=== PATIENT | female | born 2000 | race Caucasian/White ===

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

== ENCOUNTER 2022-11-19 03:00 | Outpatient (CLI) | payer MEDICAID, SELFPAY ==
[2013-05-25 10:13] VITALS: O2SAT 97
[2022-11-19 15:24] LABS: Abs Immature Grans 0.05 10^3/uL (0.0-0.06); Absolute Basophil Count 0.07 10^3/uL (0.0-0.2); Absolute Eosinophil Count 0.15 10^3/uL (0.0-0.7); Absolute Lymphocyte Count 3.61 10^3/uL (1.2-3.4); Absolute Monocyte Count 0.71 10^3/uL (0.1-0.8); Absolute Neutrophil Count 6.14 10^3/uL (1.2-6.7); Basophils % 0.7; Eosinophils % 1.4; Immature Grans % 0.5; Lymphocytes % 33.6; MCH 29.7 pg (27.0-33.0); MCHC 33.3 % (32.0-36.0); MCV 89 fL (80-95); MPV 11.6 fL (8.0-11.0); Monocytes % 6.6; Neutrophils % 57.2; Platelet Count 338 10^3/uL (130-400); RBC 5.39 10^6/uL (3.93-5.22); RDW-SD 39.2 fL; WBC 10.73 10^3/uL (4.4-10.8)
[2022-11-19 15:39] LABS: ALT 35 U/L (14-59); AST 17 U/L (15-37); Albumin 4.1 g/dL (3.4-5.0); Alkaline Phosphatase 108 U/L (46-116); BUN 11 mg/dL (7-18); Bilirubin, Total 0.3 mg/dL (0.2-1.0); CREATININE 0.6 mg/dL (0.55-1.02); Calcium 9.3 mg/dL (8.5-10.1); Calculated LDL 77 mg/dL (<100); Chloride 104 mmol/L (98-107); Cholesterol 168 mg/dL (<200); Estimated GFR 132.52 (mL/min/1.73m2); Glucose 114 mg/dL (74-106); HDL Cholesterol 48 mg/dL (40-60); Sodium 143 mmol/L (136-145); Total Protein 7.7 g/dL (6.4-8.2); Triglyceride 217 mg/dL (<150)
[2022-11-19 15:56] LABS: Hemoglobin A1C 5.5 % (<5.7)
== END 2022-11-19 03:01 | disposition home or self-care (01) ==
PROVIDERS: PCP Pediatrics; Visit Provider Student in an Organized Health Care Education/Training Program
DX: I10 Essential (primary) hypertension (principal)
CPT/HCPCS: 36415; 80053; 80061; 83036; 85025

== ENCOUNTER 2023-01-28 00:47 | Outpatient (CLI) | payer MEDICAID, SELFPAY ==
[2013-05-25 10:13] VITALS: O2SAT 97
--- NOTE | 2023-01-28 07:30 | DI.MRI_ITS ---
Exam(s) MR BRAIN WO EXAM: MR BRAIN WO CLINICAL HISTORY: ? IIH,? lesion, ? chiari malformation,papilledema, h47.10 TECHNIQUE: Multiplanar multisequence MRI of the brain was performed. COMPARISON: CT CT HEAD WO from 01/19/2021 FINDINGS: VENTRICLES AND EXTRA AXIAL SPACES: Normal in size and morphology for the patient's age. MIDLINE SHIFT: None. CEREBRAL PARENCHYMA: No focus of restricted diffusion to suggest acute infarct. No space-occupying le chester identified. HEMORRHAGE: None. BRAINSTEM/CEREBELLUM: Normal. CALVARIUM: Normal. VISUALIZED PARANASAL SINUSES/MASTOIDS:Clear. NISQUALLY OF BARRAZA: Normal flow void. PITUITARY GLAND: Note is made of a partially empty sella. OTHER FINDINGS: There is no evidence of a Chiari malformation. IMPRESSION: 1. No acute intracranial process. 2. Partially empty sella. 3. No evidence of a Chiari malformation. DATA REPOSITORY:
== END 2023-01-28 01:07 ==
LOC: DI 00:47
PROVIDERS: PCP Pediatrics; Visit Provider Nurse Practitioner Adult Health
DX: H47.10 Unspecified papilledema (principal)
CPT/HCPCS: 70551

== ENCOUNTER 2023-11-19 13:17 | Emergency (ER) | payer MEDICAID, SELFPAY ==
[2013-05-25 10:13] VITALS: O2SAT 97
[2023-11-19 13:20] VITALS: BP 197/125; PULSE 108; RESP 20; TEMP 37.1; O2SAT 98
--- NOTE | 2023-11-19 13:26 | W.ED.GENAD ---
HPI General Date/Time Provider Initiated Documentation: 11/19/23 13:20. HPI Narrative: 22-year-old female with past medical history of hypertension, brain complications, who presents today for evaluation of bleeding from her right ear. Patient states that she had some muffling in her ear/hearing, she put a Q-tip in to get some suspected wax out and this shortly thereafter cause bleeding. She denies any pain. No discomfort. She did not have any significant change in hearing after this. No other complaints at this time. No other modifying factors. Related Data Home Medications Medication Instructions Recorded Confirmed albuterol sulfate 90 mcg/actuation 2 puff inhalation Q4H PRN 10/29/18 11/19/23 aerosol inhaler shortness of breath or wheezing prochlorperazine maleate 5 mg 5 mg PO TID PRN headaches #30 tabs 01/24/23 11/19/23 tablet Previous Rx's Medication Instructions Recorded prochlorperazine maleate 5 mg 5 mg PO TID PRN headaches #30 tabs 01/24/23 tablet Allergies Allergy/AdvReac Type Severity Reaction Status Date / Time bee venom protein (honey bee) Allergy Severe Unverified 11/19/23 13:27 sweet potato Allergy Severe Anaphylaxsi Verified 11/19/23 13:27 s bug bites Allergy Uncoded 11/19/23 13:27 General Stated Complaint: EarProblem COLTEN: 4 Review of Systems All systems reviewed & are unremarkable except as noted in HPI and below Exam Narrative Exam Narrative: 1.Const: Well-nourished, Well-developed, appearing stated age 2.Eyes: PERRL, no conjunctival injection, and symmetrical lids. 3.ENT: Left tympanic membrane and ear exam demonstrates mild amount of cerumen. No impaction. No evidence of infection. Right tympanic membrane demonstrates an intact TM, no erythema edema or effusion. She does have evidence of a small area of stabilized bleeding at the near the external component of the external ear canal. Small clot is present there. No active bleeding. No signs of infection or trauma otherwise. 4.CVS: +S1/S2, No murmurs or gallops. Peripheral pulses 2+ and equal in all extremities. Brisk capillary refill in all extremities. 5.RESP: Unlabored respiratory effort. Clear to auscultation bilaterally. No wheezes rales or rhonchi 6.GI: Soft, Nontender/Nondistended, No hepatosplenomegaly. No guarding or rebound. 7.MSK: Normocephalic/Atraumatic, Extremities w/o deformity or ttp No cyanosis or clubbing, Normal movement of all extremities 8.Skin: Warm, Dry. No rashes or lesions. 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 Sensation grossly intact, no focal neurologic deficits. 10.Psych: (AAO) x3. Appropriate mood and affect Course Vital Signs Vital signs: Vital Signs Temperature 37.1 C 11/19/23 13:20 Pulse 108 H 11/19/23 13:20 Respiratory Rate 20 11/19/23 13:20 Blood Pressure 197/125 H 11/19/23 13:20 Pulse Oximetry 98 11/19/23 13:20 Temperature 37.1 C 11/19/23 13:20 Temperature Source Skin 11/19/23 13:20 Pulse 108 H 11/19/23 13:20 Respiratory Rate 20 11/19/23 13:20 Respiratory Effort Normal 11/19/23 13:25 Blood Pressure 197/125 H 11/19/23 13:20 Blood Pressure Position Sitting 11/19/23 13:20 Pulse Oximetry 98 11/19/23 13:20 Oxygen Delivery Method Room Air 11/19/23 13:20 Oxygen Flow Rate 0 11/19/23 13:20 Medical Decision Making 22-year-old female with past medical history of hypertension, brain complications, who presents today for evaluation of bleeding from her right ear. Patient states that she had some muffling in her ear/hearing, she put a Q-tip in to get some suspected wax out and this shortly thereafter cause bleeding. She denies any pain. No discomfort. She did not have any significant change in hearing after this. No other complaints at this time. No other modifying factors. Exam demonstrates well-appearing female, left tympanic membrane normal, right tympanic membrane normal with no signs of perforation. There is a small area of bleeding in the external component of the external auditory canal, small clot is present there. Suspect that the patient removed either scab or cerumen which caused the bleeding subsequently. This is now stabilized. No large clot that needs washout. Patient looks well otherwise. No indication for infection control. Patient is otherwise stable. Small amount of gauze was placed at the edge of the ear, patient tolerated this well. Patient stable for discharge. Recommend 2 to 3 weeks of nothing in the ear, and then eventual washout with warm water at the urgent care or with PCP. Discussed red flags for which to return. I have extensively reviewed the treatment plan and discharge instructions with the patient. I have addressed all patient concerns at this time. The patient was made aware of what symptoms to monitor for that would warrant a return to the emergency department. Discussed the plan with the patient, they demonstrate verbal understanding and agreement with our assessment and plan at this time. The documentation in this chart was dictated using [employer] dictation software. Please excuse any dictation errors. Quality:SDOH Health Related Social Needs: No Data to Display PFSH All Active Problems Traumatic hematoma of right ear canal (Acute) Idiopathic intracranial hypertension (Acute) Hypertension (Chronic) Papilledema (Acute) Migraine headache (Chronic) Musculoskeletal chest pain (Acute) Medical History Headache Black-out (not amnesia) History of prematurity 2.5 months early per Mother Asthma Social History Smoking/Tobacco Use Status: Never Smoking risk assessment performed?: Yes Alcohol Intake: never Substance use type: does not use Household members: family Pets and animals: Yes Pets and animals: cat(s) Current gender identity: female Seatbelt use: always Helmet use: Yes Water heater temp set <120 deg: Yes Fire extinguisher in home: Yes Carbon monox detector in home: Yes Firearms in home: No Do you feel safe in your relationship?: Yes Additional Social history: Lives with Mom sister and Mom's fiance. No interaction with Bio Dad. Discharge Plan Disposition Patient Disposition: Home Condition: Good Discharge Details Chief Complaint: EarProblem Clinical Impression: Traumatic hematoma of right ear canal Primary Care Provider: Andrea Nye ED Provider: Andrea Perez Home Meds and New Rx's Prescriptions: No Action prochlorperazine maleate 5 mg tablet 5 mg PO TID PRN (Reason: headaches) Qty: 30 3RF acetazolamide 250 mg tablet 500 mg PO BID Qty: 360 3RF albuterol sulfate 90 mcg/actuation HFA aerosol inhaler 2 puff IH Q4H PRN (Reason: shortness of breath or wheezing) Discharge Instructions Additional Instructions: At this time the bleeding was likely from a scab that got pulled off. Please do not put anything in your ear for the next 2 to 3 weeks. The bleeding has now stopped at this time, and a small clot has appropriately formed. Please follow-up with your family doctor or the urgent care to have your ears washed out with water for eventual wax removal. If you notice any worsening of your symptoms, or any new symptoms such as vomiting, diarrhea, fever, chills, shortness of breath, chest pain, numbness, weakness, or fainting , please return immediately to the emergency department for reevaluation. Please follow up with your primary care provider as soon as possible for reassessment and reevaluation. As always, it was a pleasure participating in your medical care today. Referrals: Andrea Nye MD [Primary Care Provider] -
== END 2023-11-19 13:32 | disposition home or self-care (01) ==
PROVIDERS: Emergency Provider Student in an Organized Health Care Education/Training Program; PCP Pediatrics
DX: S00.431A Contusion of right ear, initial encounter (principal); Y93.E8 Activity, other personal hygiene; Y92.018 Other place in single-family (private) house as the place of occurrence of the external cause
CPT/HCPCS: 99282

== ENCOUNTER 2023-12-08 09:22 | Emergency (ER) | payer MEDICAID, SELFPAY ==
[2013-05-25 10:13] VITALS: O2SAT 97
[2023-12-08 09:27] VITALS: BP 164/107; PULSE 83; RESP 18; TEMP 36.8; O2SAT 97
--- NOTE | 2023-12-08 09:30 | DI.RAD_ITS ---
Exam(s) XR RIBS RT W PA LAT CHEST EXAM: XR RIBS RT W PA LAT CHEST CLINICAL HISTORY: lateral rib pain TECHNIQUE: 2D digital imaging was performed.Five images were obtained. COMPARISON: CR CHEST 2 VIEWS PA,LAT from 02/28/2011 FINDINGS: MEDIASTINUM: Normal. HEART: Normal. PULMONARY VASCULATURE: Normal. LUNGS: Clear. PLEURAL SPACE: No pleural effusion or pneumothorax. BONE:Normal. RIGHT RIBS: Normal. OTHER FINDINGS:Normal. IMPRESSION: 1. No acute pulmonary findings. 2. Unremarkable right ribs. DATA REPOSITORY: RADIATION DOSE DELIVERED:
[2023-12-08 09:31] VITALS: BP 164/107; PULSE 83; RESP 18; TEMP 36.8; O2SAT 97
[2023-12-08] MEDS: Ketorolac 15 MG/ML VIAL IM (09:57)
[2023-12-08] MEDS: Lidocaine 5% Patch 1 PATCH TP (09:57)
--- NOTE | 2023-12-08 10:29 | DI.VRAD_ITS ---
PROCEDURE INFORMATION: Exam: XR Right Ribs Exam date and time: 12/08/2023 10:07 AM Age: 22 years old Clinical indication: Other: Lateral rib pain TECHNIQUE: Imaging protocol: Radiologic exam of the right ribs. Views: 2 views. COMPARISON: No relevant prior studies available. FINDINGS: Bones/joints: Normal. Soft tissues: Normal. IMPRESSION: No acute findings. In particular, no abnormalities are seen at the anterior arch of right 7th rib at the level of the marker. PROCEDURE INFORMATION: Exam: XR Chest Exam date and time: 12/08/2023 10:07 AM Age: 22 years old Clinical indication: Other: Lateral rib pain TECHNIQUE: Imaging protocol: Radiologic exam of the chest. Views: 2 views. COMPARISON: No relevant prior studies available. FINDINGS: Lungs: Unremarkable. No consolidation. Pleural spaces: Unremarkable. No pleural effusion. No pneumothorax. Heart/Mediastinum: Unremarkable. No cardiomegaly. Bones/joints: Unremarkable. IMPRESSION: No acute findings. Dictated and Authenticated by: Prasad Elizabeth MD. Ordering:VALERIE Lopez MD
--- NOTE | 2023-12-08 10:49 | W.ED.GENAD ---
HPI General Mode of arrival: ambulatory. Date/Time Provider Initiated Documentation: 12/08/23 09:34. Limitations to Documentation: no limitations. Information obtained by: patient and RN notes reviewed. History of Present Illness 22 year old F presents to the emergency department with the chief complaint of Right-sided pain, described as moderate, Patient started experiencing this hour(s) (2.5) and it has been constant. No relieving factors improve symptom(s), No exacerbating factors reported . Patient notes no other symptoms.. Patient did receive the following treatments prior to arrival, NSAID and other (Orio-myb-xcteaxh meds) Related Data Home Medications Medication Instructions Recorded Confirmed albuterol sulfate 90 mcg/actuation 2 puff inhalation Q4H PRN 10/29/18 12/08/23 aerosol inhaler shortness of breath or wheezing prochlorperazine maleate 5 mg 5 mg PO TID PRN headaches #30 tabs 01/24/23 12/08/23 tablet Previous Rx's Medication Instructions Recorded prochlorperazine maleate 5 mg 5 mg PO TID PRN headaches #30 tabs 01/24/23 tablet Allergies Allergy/AdvReac Type Severity Reaction Status Date / Time bee venom protein (honey bee) Allergy Severe Other (See Unverified 12/08/23 09:31 Comment) sweet potato Allergy Severe Anaphylaxsi Verified 12/08/23 09:31 s bug bites Allergy Skin Rash Uncoded 12/08/23 09:31 General Stated Complaint: Abd Prob COLTEN: 3 Review of Systems Constitutional Constitutional: Denies chills and Denies fever(s) Cardiovascular Cardiovascular: Denies chest pain and Denies dyspnea Respiratory Respiratory: Denies cough, Reports pain on inspiration and Denies dyspnea Gastrointestinal Gastrointestinal: Denies abdominal pain, Denies diarrhea, Denies nausea and Denies vomiting Genitourinary Genitourinary: Reports abnormal menses, Denies hematuria, Denies dysuria, Denies pelvic pain, Reports flank pain and Denies vaginal discharge Integumentary/Breasts Skin/Breast: Denies rash Exam Const General: cooperative Orientation: alert, awake and oriented x3 Chest Chest: normal inspection of the chest, no localized rib tenderness and tenderness rib right mid-axillary line involving the 6th rib, involving the 7th rib and involving the 8th rib Resp Effort & Inspection: normal respiratory effort and able to speak in complete sentences Auscultation: clear to auscultation bilaterally Cardio Rate: regular rate Rhythm: regular rhythm Heart Sounds: S1 normal and S2 normal GI Palpation: soft, not firm, no guarding, no masses, no pulsatile masses, not rigid and nontender Auscultation: normal bowel sounds Back/Spine/Pelvis Back: no CVA tenderness Neuro General: patient alert, patient awake, patient oriented x3, gait normal and moves all extremities Course Vital Signs Vital signs: Vital Signs Temperature 36.8 C 12/08/23 09:27 Pulse 83 12/08/23 09:27 Respiratory Rate 18 12/08/23 09:27 Blood Pressure 164/107 H 12/08/23 09:27 Pulse Oximetry 97 12/08/23 09:27 Temperature 36.8 C 12/08/23 09:31 Temperature Source Temporal Artery Scan 12/08/23 09:31 Pulse 83 12/08/23 09:31 Respiratory Rate 18 12/08/23 09:31 Respiratory Effort Normal, Non-Labored 12/08/23 09:32 Blood Pressure 164/107 H 12/08/23 09:31 Blood Pressure Position Sitting 12/08/23 09:31 Pulse Oximetry 97 12/08/23 09:31 Oxygen Delivery Method Room Air 12/08/23 09:31 Oxygen Flow Rate 0 12/08/23 09:31 Lab/Test Results Lab/Test Results: POC- Test(urine) Negative Medical Decision Making Patient presenting to the emergency department for chief complaint of right-sided chest wall pain. Patient denies any known injury or trauma, states that she woke up around 7 AM with this pain and discomfort, has tried multiple jhte-fji-zvriuzw medications with no benefit. Patient has no significant past medical history, no surgical history. Physical exam shows mid axillary mid rib pain and discomfort to palpation, normal skin assessment, no abdominal tenderness or findings, clear lung sounds, no CVA tenderness. Have low suspicion for any intra-abdominal pathology as exam and pain is not consistent with that, suspect occult rib injury, soft tissue injury, or potential early zoster. Will perform radiological imaging for possible occult injury or pulmonary finding, will treat pain with lidocaine patch and ketorolac. Reviewed radiological imaging along with radiologist interpretation that shows no acute or emergent findings. Reassessed patient and patient states significant improvement of pain discomfort. Will recommend continued conservative management and follow-up with primary care provider if not improving. After discussion of diagnosis and plan of care patient has no further needs, questions, or concerns and states clear understanding to return to the emergency department for any worsening symptoms. This documentation was generated using [employer] system, please disregard any oddities of phrase or misspellings. Imaging Data Radiologic Study: Imaging: X-Ray Radiologist's impression: Exam(s) PROCEDURE INFORMATION: Exam: XR Right Ribs Exam date and time: 12/08/2023 10:07 AM Age: 22 years old Clinical indication: Other: Lateral rib pain TECHNIQUE: Imaging protocol: Radiologic exam of the right ribs. Views: 2 views. COMPARISON: No relevant prior studies available. FINDINGS: Bones/joints: Normal. Soft tissues: Normal. IMPRESSION: No acute findings. In particular, no abnormalities are seen at the anterior arch of right 7th rib at the level of the marker. PROCEDURE INFORMATION: Exam: XR Chest Exam date and time: 12/08/2023 10:07 AM Age: 22 years old Clinical indication: Other: Lateral rib pain TECHNIQUE: Imaging protocol: Radiologic exam of the chest. Views: 2 views. COMPARISON: No relevant prior studies available. FINDINGS: Lungs: Unremarkable. No consolidation. Pleural spaces: Unremarkable. No pleural effusion. No pneumothorax. Heart/Mediastinum: Unremarkable. No cardiomegaly. Bones/joints: Unremarkable. IMPRESSION: No acute findings. Dictated and Authenticated by: Prasad Elizabeth MD. Quality:SDOH Health Related Social Needs: No Data to Display PFSH All Active Problems (Updated 12/08/23 @ 10:59 by John Bundy NP) Right-sided chest wall pain (Acute) Traumatic hematoma of right ear canal (Acute) Idiopathic intracranial hypertension (Acute) Hypertension (Chronic) Papilledema (Acute) Migraine headache (Chronic) Musculoskeletal chest pain (Acute) Medical History Headache Black-out (not amnesia) History of prematurity 2.5 months early per Mother Asthma Social History Smoking/Tobacco Use Status: Never Smoking risk assessment performed?: Yes Alcohol Intake: never Drug use: Never Substance use type: does not use Household members: family Pets and animals: Yes Pets and animals: cat(s) Current gender identity: female Seatbelt use: always Helmet use: Yes Water heater temp set <120 deg: Yes Fire extinguisher in home: Yes Carbon monox detector in home: Yes Firearms in home: No Do you feel safe at home: Yes Do you feel safe in your relationship?: Yes Additional Social history: Lives with Mom sister and Mom's fiance. No interaction with Bio Dad. Discharge Plan Disposition Patient Disposition: Home Discharge Details Clinical Impression: Right-sided chest wall pain Primary Care Provider: Andrea Nye ED Provider: John Bundy Home Meds and New Rx's Prescriptions: No Action prochlorperazine maleate 5 mg tablet 5 mg PO TID PRN (Reason: headaches) Qty: 30 3RF albuterol sulfate 90 mcg/actuation HFA aerosol inhaler 2 puff IH Q4H PRN (Reason: shortness of breath or wheezing) Discharge Instructions Instructions: Chest Wall Pain (ED) Additional Instructions: Please continue to use rlrt-boe-zvrlmam lidocaine patches along with ibuprofen or acetaminophen as needed for discomfort Return immediately to the emergency department for any new or significant worsening of symptoms otherwise follow-up with your primary care provider if not improving Referrals: Andrea Nye MD [Primary Care Provider] - Discharge Data Discharge Date/Time-TO BE ENTERED AT DEPARTURE: 12/08/23 11:09
== END 2023-12-08 11:09 | disposition home or self-care (01) ==
PROVIDERS: Emergency Provider Nurse Practitioner Family; PCP Pediatrics
DX: R07.89 Other chest pain (principal); I10 Essential (primary) hypertension
CPT/HCPCS: 81025; 99283; 71046; 71100; J1885

== ENCOUNTER 2024-05-21 11:39 | Outpatient (REF) | payer MEDICAID, SELFPAY ==
[2013-05-25 10:13] VITALS: O2SAT 97
== END 2024-05-21 11:40 | disposition home or self-care (01) ==
LOC: LBN 11:39
PROVIDERS: PCP Student in an Organized Health Care Education/Training Program; Visit Provider Student in an Organized Health Care Education/Training Program
DX: J02.9 Acute pharyngitis, unspecified (principal); R13.10 Dysphagia, unspecified
CPT/HCPCS: 87070

== ENCOUNTER 2024-06-17 11:47 | Emergency (ER) | payer MEDICAID, SELFPAY ==
[2013-05-25 10:13] VITALS: O2SAT 97
--- NOTE | 2024-06-17 11:48 | ED.GENADUL_ITS ---
Discharge Plan Disposition Patient Disposition: Home Discharge Details Clinical Impression: Acute pain of right foot Primary Care Provider: Em Brand ED Provider: Kvng Jacobsen Home Meds and New Rx's Prescriptions: Continued prochlorperazine maleate 5 mg tablet 5 mg PO TID PRN (Reason: headaches) Qty: 30 3RF topiramate [Topamax] 50 mg tablet 50 mg PO QHS Qty: 60 3RF albuterol sulfate 90 mcg/actuation HFA aerosol inhaler 2 puff IH Q4H PRN (Reason: shortness of breath or wheezing) Qty: 6.7 1RF ketoconazole 2 % shampoo 1 applic topical ONCE Qty: 120 1RF Rx Instructions: Trial, as body wash, wash off after 5 minutes, x 3 days. Repeat in 1 week. losartan 25 mg tablet 25 mg PO BID Qty: 60 1RF Rx Instructions: Trial 1/2 tablet daily in AM x 2 weeks; Increase to 1/2 tab 2/day (evening) propranolol 10 mg tablet 10 mg PO BID PRN (Reason: anxiety, worry, high heart-rate) Qty: 60 6RF Rx Instructions: Continue @ 10mg dosing Discharge Instructions Additional Instructions: You are seen in the emergency department for your foot pain. Your x-ray showed no sign of any fractures. As we discussed if you develop redness swelling or cannot feel your foot please return immediately to the emergency department. Otherwise please wear this boot for the neck several days. Please follow-up next week with your primary care provider. Please ice your foot for 20 minutes on 20 off throughout the day today. For your pain please take medications as follows: 1. Take acetaminophen (Tylenol), 1,000 mg (two 500 mg tabs) every 6 hours [2. Take ibuprofen (Advil), 400 mg every 6 hours.] Discharge Data Discharge Date/Time-TO BE ENTERED AT DEPARTURE: 06/17/24 13:45 HPI General Date/Time Provider Initiated Documentation: 06/17/24 11:48 . HPI Narrative: MDM This is an overall very well-appearing normothermic and not tachycardic 23-year-old female with atraumatic right foot pain concerning for the possibility of sprain versus less likely fracture for which she will undergo plain films. No pain out of proportion to suggest necrotizing soft tissue infection. Patient the patient's age and her lack of peripheral vascular disease history and her warm well-perfused right foot I am not concerned for critical limb ischemia so I do not feel that the patient requires a CT angiogram with runoffs. Patient is not a diabetic and has no signs of ulcerations to suggest diabetic foot ulcers I did not feel that she required an MRI. No midfoot instability to suggest Lisfranc injury. No lateral foot tenderness to suggest Girard fracture. No history of axial loading to suggest increased risk for talus fracture. No rash to foot to suggest zoster. No fluctuance to suggest abscess. No erythema to suggest cellulitis. Patient and I discussed that if her plain films are negative she should treat conservatively with rest ice and schedule acetaminophen and ibuprofen. Patient has a history of hypertension and vital signs are notable for elevated blood pressure. Will make her weightbearing as tolerated with a walking boot for comfort. We discussed return indications including worsening pain any color changes to her foot any redness or swelling. Otherwise I advised PCP follow-up. Patient understood her return indications and was discharged with empiric trial of expectant outpatient management. HPI This is an immunized 23-year-old female with history of hypertension and idiopathic intracranial hypertension arrived to the emergency department via private vehicle with her aunt in the setting of right foot pain. Patient re ports that when she woke up this morning she had pain in her right foot. She attempted treatment this morning with ibuprofen. She denies any trauma to her right foot. She does note that she broke her right ankle 4 to 5 years ago. This healed on its own and she did not require surgical intervention. She has had no recent fevers chills nausea or vomiting. She denies routine tobacco, ethanol, and illicits. She has no history of diabetes. 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 She denies a chance that she could have injured her right foot. Exam General: Well-appearing in no acute distress speaking in complete sentences. Head: Normocephalic, atraumatic. Eye: Extraocular eye movements intact. No conjunctival injection. No scleral icterus. Ear, nose, mouth, throat: Grossly normal inspection. Normal voice, handling secretions normally. Neck: Trachea midline. Cardiovascular: Well-perfused distal extremities. Respiratory: Nonlabored respiration. Gastrointestinal: Nondistended abdomen. Musculoskeletal: Right foot warm well-perfused with 2+ PT and DP pulses. Cap refill less than 2 seconds in the right foot. Patient has hair present on her great toe of the right foot. She has 5 out of 5 strength in dorsi and plantarflexion of the right foot. She has no right midfoot instability. No right foot lateral tenderness. No signs of lacerations ecchymoses erythema nor fluctuance to right foot. Skin: Normal for age and race, grossly normal temperature and turgor. No acute rash. Neurologic: Alert and appropriate, no apparent acute deficits. GCS 15. Psychiatric: Mood and manner are appropriate. Grooming and personal hygiene are appropriate. Related Data Home Medications ?Medication ?Instructions ?Recorded ?Confirmed albuterol sulfate 90 mcg/actuation 2 puff inhalation Q4H PRN 06/16/24 06/17/24 aerosol inhaler shortness of breath or wheezing #6.7 grams ketoconazole 2 % shampoo 1 applic topical ONCE pityriasis 06/16/24 06/17/24 versicolor #120 mL losartan 25 mg tablet 25 mg PO BID #60 tabs 06/16/24 06/17/24 prochlorperazine maleate 5 mg 5 mg PO TID PRN headaches #30 tabs 06/16/24 06/17/24 tablet propranolol 10 mg tablet 10 mg PO BID PRN anxiety, worry, 06/16/24 06/17/24 high heart-rate #60 tabs topiramate 50 mg tablet (Topamax) 50 mg PO QHS #60 tabs 06/16/24 06/17/24 Previous Rx's ?Medication ?Instructions ?Recorded albuterol sulfate 90 mcg/actuation 2 puff inhalation Q4H PRN 06/16/24 aerosol inhaler shortness of breath or wheezing #6.7 grams ketoconazole 2 % shampoo 1 applic topical ONCE pityriasis 06/16/24 versicolor #120 mL losartan 25 mg tablet 25 mg PO BID #60 tabs 06/16/24 prochlorperazine maleate 5 mg 5 mg PO TID PRN headaches #30 tabs 06/16/24 tablet propranolol 10 mg tablet 10 mg PO BID PRN anxiety, worry, 06/16/24 high heart-rate #60 tabs topiramate 50 mg tablet (Topamax) 50 mg PO QHS #60 tabs 06/16/24 Allergies Allergy/AdvReac Type Severity Reaction Status Date / Time bee venom protein (honey bee) Allergy Severe Other (See Verified 06/17/24 11:54 Comment) sweet potato Allergy Severe Anaphylaxsi Verified 06/17/24 11:54 s bug bites Allergy Skin Rash Uncoded 06/17/24 11:54 General COLTEN: 3 Medical Decision Making Quality:SDOH Health Related Social Needs: Health related social needs inadequate housing, transp o insecurity Health related social needs details Getting RTC help PFSH All Active Problems (Updated 06/17/24 @ 12:54 by Kvng Jacobsen MD) Acute pain of right foot (Acute) Pharyngitis, acute (Acute) Viral (rapid-strep NEG)(Cx normal natan) 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 Hx elevated diastolic BPs Papilledema (Acute) stable bilateral optic disc edema which appeared overall improved since December 2022 (per [facility] from 12/06/2023) Migraine headache (Chronic) Musculoskeletal chest pain (Acute) Medical History (Updated 06/17/24 @ 12:54 by Kvng Jacobsen MD) Asthma complicating in first trimester Headache Black-out (not amnesia) History of prematurity 2.5 months early per Mother Asthma Family History Mother Anxiety Asthma Depression Social History Smoking/Tobacco Use Status: Never Smoking risk assessment performed?: Yes Alcohol Intake: never Drug use: Never Substance use type: does not use Adopted: No Caregiver/Support person: No Foster care: No Household members: family Number of Children: 0 number of grandchildren: 0 Communication Needs: None Education Level: high school current occupation: [employer] Pets and animals: Yes (2 cats, 1 dog) Pets and animals: cat(s) and dog(s) Sexually active: No Do you think of yourself as: bisexual Current gender identity: female What is your relationship status?: never How often do you talk on the phone with friends or family?: three or more times per week How often do you get together with friends or relatives?: twice per week Do you belong to any clubs or organized social groups?: no Panel score (0-1 are the most socially isolated patients): 1 What type of physical activity do you participate in: walking Duration: 45-60 minutes/day Frequency: daily Nisha/Buddhist: None Special nisha needs: No Seatbelt use: always Helmet use: No Drive intox or ride w/[employer] driver: No Water heater temp set <120 deg: Yes Fire extinguisher in home: Yes Carbon monox detector in home: Yes Firearms in home: No Do you feel safe at home: Yes Do you feel safe in your relationship?: Yes Additional Social history: Lives with Mom sister and Mom's fiance. No interaction with Bio Dad. Female Reproductive History Menstrual Age of Menarche: 12 control method: none
[2024-06-17 11:50] VITALS: BP 145/107; PULSE 85; RESP 16; TEMP 36.9; O2SAT 97
[2024-06-17] MEDS: Acetaminophen 500 MG TAB 1000 MG PO (12:37)
--- NOTE | 2024-06-17 12:55 | DI.RAD_ITS ---
Exam(s) XR FOOT RT COMPLETE EXAM: XR FOOT RT COMPLETE CLINICAL HISTORY: right foot pain. TECHNIQUE: 2D digital imaging was performed. COMPARISON: CR XR foot RT complete from 11/26/2018 FINDINGS: 3 views There is no evidence of acute fracture or diastasis of the Lisfranc joint. Great toe metatarsophalan geal joint appears unremarkable. There is no pes planus. Bone density is normal. No osseous lesion s nor erosions. No inferior calcaneal spur. No enthesophytes. Bone density normal. No osseous les ions. IMPRESSION: No significant osseous findings in the right foot and no significant change compared to prior images of November 2018. DATA REPOSITORY: RADIATION DOSE DELIVERED:
== END 2024-06-17 13:45 | disposition home or self-care (01) ==
PROVIDERS: Emergency Provider Emergency Medicine; PCP Student in an Organized Health Care Education/Training Program
DX: M79.671 Pain in right foot (principal)
CPT/HCPCS: 99283; 73630

== ENCOUNTER 2024-07-14 08:28 | Emergency (ER) | payer MEDICAID, SELFPAY ==
[2013-05-25 10:13] VITALS: O2SAT 97
[2024-07-14] VITALS (21 sets, daily range): BP systolic 150–155; BP diastolic 102–103; PULSE 92–123; RESP 14–33; TEMP 36.8; O2SAT 96
--- NOTE | 2024-07-14 08:30 | RT.EKG_ITS ---
APPROVED REPORT Exam: Resting ECG Reason for Exam: chest pain, sob Patient Location: E HR:118 bpm ECG Measurements Heart Rate 118 AXIS SC 132 P 29 QRSd 74 QRS 12 QT 300 T 0 QTc 421 Conclusion Sinus tachycardia...rate> 99 Sinus tachycardia normal axis normal intervals consider rate related ST segment changes
--- NOTE | 2024-07-14 08:30 | DI.RAD_ITS ---
Exam(s) XR CHEST 2V PA LATERAL EXAM: XR CHEST 2V PA LATERAL CLINICAL HISTORY: chest pain, anterior TECHNIQUE: 2D digital imaging was performed of the chest. Two images were obtained. PA and lateral views were obtained. COMPARISON: CR,XR XR RIBS RT W PA LAT CHEST from 12/08/2023 FINDINGS: MEDIASTINUM: Normal. HEART: Normal. PULMONARY VASCULATURE: Normal. LUNGS: Clear. PLEURAL SPACE: No pleural effusion or pneumothorax. BONE:Within normal limits for the patient's age. OTHER FINDINGS:Normal. IMPRESSION: No acute pulmonary findings. DATA REPOSITORY: RADIATION DOSE DELIVERED:
--- NOTE | 2024-07-14 08:35 | ED.GENADUL_ITS ---
Discharge Plan Disposition Patient Disposition: Home Condition: Improving Discharge Details Chief Complaint: Chest Pain Clinical Impression: Chest pain Primary Care Provider: Em Brand ED Provider: Cornel Tovar Home Meds and New Rx's Prescriptions: No Action prochlorperazine maleate 5 mg tablet 5 mg PO TID PRN (Reason: headaches) Qty: 30 3RF topiramate [Topamax] 50 mg tablet 50 mg PO QHS Qty: 60 3RF albuterol sulfate 90 mcg/actuation HFA aerosol inhaler 2 puff IH Q4H PRN (Reason: shortness of breath or wheezing) Qty: 6.7 1RF ketoconazole 2 % shampoo 1 applic topical ONCE Qty: 120 1RF Rx Instructions: Trial, as body wash, wash off after 5 minutes, x 3 days. Repeat in 1 week. losartan 25 mg tablet 25 mg PO BID Qty: 60 1RF Rx Instructions: Trial 1/2 tablet daily in AM x 2 weeks; Increase to 1/2 tab 2/day (evening) propranolol 10 mg tablet 10 mg PO BID PRN (Reason: anxiety, worry, high heart-rate) Qty: 60 6RF Rx Instructions: Continue @ 10mg dosing Discharge Instructions Instructions: Chest pain Additional Instructions: Please follow-up with your primary care physician. Please return to the emergency department for any worsening symptoms HPI General Date/Time Provider Initiated Documentation: 07/14/24 08:33 . HPI Narrative: 23-year-old female history of asthma presents with acute onset anterior sharp chest discomfort brief nature now resolved. Denies nausea vomiting diaphoresis shortness of breath or palpitations. No history of thromboembolic disease. No exogenous estrogen use, no history of coronary disease. No leg pain or Related Data Home Medications ?Medication ?Instructions ?Recorded ?Confirmed albuterol sulfate 90 mcg/actuation 2 puff inhalation Q4H PRN 06/16/24 07/14/24 aerosol inhaler shortness of breath or wheezing #6.7 grams ketoconazole 2 % shampoo 1 applic topical ONCE pityriasis 06/16/24 07/14/24 versicolor #120 mL losartan 25 mg tablet 25 mg PO BID #60 tabs 06/16/24 07/14/24 prochlorperazine maleate 5 mg 5 mg PO TID PRN headaches #30 tabs 06/16/24 07/14/24 tablet propranolol 10 mg tablet 10 mg PO BID PRN anxiety, worry, 06/16/24 07/14/24 high heart-rate #60 tabs topiramate 50 mg tablet (Topamax) 50 mg PO QHS #60 tabs 06/16/24 07/14/24 Previous Rx's ?Medication ?Instructions ?Recorded albuterol sulfate 90 mcg/actuation 2 puff inhalation Q4H PRN 06/16/24 aerosol inhaler shortness of breath or wheezing #6.7 grams ketoconazole 2 % shampoo 1 applic topical ONCE pityriasis 06/16/24 versicolor #120 mL losartan 25 mg tablet 25 mg PO BID #60 tabs 06/16/24 prochlorperazine maleate 5 mg 5 mg PO TID PRN headaches #30 tabs 06/16/24 tablet propranolol 10 mg tablet 10 mg PO BID PRN anxiety, worry, 06/16/24 high heart-rate #60 tabs topiramate 50 mg tablet (Topamax) 50 mg PO QHS #60 tabs 06/16/24 Allergies Allergy/AdvReac Type Severity Reaction Status Date / Time bee venom protein (honey bee) Allergy Severe Other (See Verified 07/14/24 08:40 Comment) sweet potato Allergy Severe Anaphylaxsi Verified 07/14/24 08:40 s bug bites Allergy Skin Rash Uncoded 07/14/24 08:40 General COLTEN: 4 Exam Narrative Exam Narrative: Alert interactive no acute distress Moist mucous membranes tongue secretions Lungs clear bilaterally no wheezes rales or rhonchi Normal heart rate normal heart sounds no murmurs rubs or gallops Abdomen soft nontender nondistended Moving extremities without deficit no peripheral edema Alert oriented normal speech Medical Decision Making 23-year-old female history of asthma presents with acute onset anterior sharp chest discomfort brief nature now resolved. Denies nausea vomiting diaphoresis shortness of breath or palpitations. No history of thromboembolic disease. No exogenous estrogen use, no history of coronary disease. No leg pain or swelling. Patient hemodynamically stable noted to be moderately tachycardic on arrival, speaking full sentences lungs clear bilaterally no wheezes rales or rhonchi, no peripheral edema, no recent travel trauma immobilization or exogenous estrogen use, no history of thromboembolic disease or coronary disease. Obtain EKG, stat labs, including troponin BNP D-dimer, chest x-ray. Consider pleurisy versus costochondritis versus anxiety versus musculoskeletal versus PE lower suspicion for ACS lower suspicion for aortic pathology pneumothorax or pneumonia. 11: 22 patient was comfortably no acute distress asymptomatic. Labs and imaging unremarkable. Consider costochondritis versus pleurisy. 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 Hx elevated diastolic BPs Papilledema (Acute) stable bilateral optic disc edema which appeared overall improved since December 2022 (per [facility] Care from 12/06/2023) Migraine headache (Chronic) Musculoskeletal chest pain (Acute) Medical History (Updated 07/14/24 @ 11:22 by Cornel Tovar MD) Asthma complicating in first trimester Headache Black-out (not amnesia) History of prematurity 2.5 months early per Mother Asthma Family History Mother Anxiety Asthma Depression Social History Smoking/Tobacco Use Status: Never Smoking risk assessment performed?: Yes Alcohol Intake: never Drug use: Never Substance use type: does not use Adopted: No Caregiver/Support person: No Foster care: No Household members: family Number of Children: 0 number of grandchildren: 0 Communication Needs: None Education Level: high school current occupation: [employer] Pets and animals: Yes (2 cats, 1 dog) Pets and animals: cat(s) and dog(s) Sexually active: No Do you think of yourself as: bisexual Current gender identity: female What is your relationship status?: never How often do you talk on the phone with friends or family?: three or more times per week How often do you get together with friends or relatives?: twice per week Do you belong to any clubs or organized social groups?: no Panel score (0-1 are the most socially isolated patients): 1 What type of physical activity do you participate in: walking Duration: 45-60 minutes/day Frequency: daily Nisha/Latter-Day: None Special nisha needs: No Seatbelt use: always Helmet use: No 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 No interaction with Bio Dad. Female Reproductive History Menstrual Age of Menarche: 12 control method: none
[2024-07-14 08:57] LABS: Abs Immature Grans 0.06 10^3/uL (0.0-0.06); Absolute Lymphocyte Count 2.89 10^3/uL (1.2-3.4); Basophils % 0.4 %; Eosinophils % 0.7 %; HCT 47.2 % (36.0-46.0); HGB 15.7 g/dL (11.2-15.7); Immature Grans % 0.4 %; MCH 29.6 pg (27.0-33.0); MCHC 33.3 % (32.0-36.0); MCV 89 fL (80-95); MPV 11.1 fL (8.0-11.0); Monocytes % 4.9 %; Neutrophils % 72.6 %; Platelet Count 347 10^3/uL (130-400); RBC 5.31 10^6/uL (3.93-5.22); RDW 12.2 % (11.7-14.6); RDW-SD 40.1 fL; WBC 13.78 10^3/uL (4.4-10.8)
[2024-07-14 09:17] LABS: Absolute Basophil Count 0.06 10^3/uL (0.0-0.2); Absolute Monocyte Count 0.68 10^3/uL (0.1-0.8)
[2024-07-14 09:18] LABS: HCG Qual (Serum) Negative
[2024-07-14 09:24] LABS: Prothrombin Time 10.4 sec (9.1-11.1)
[2024-07-14 09:29] LABS: ALT 106 U/L (14-59); AST 81 U/L (15-37); Albumin 3.8 g/dL (3.4-5.0); Alkaline Phosphatase 105 U/L (46-116); Anion Gap 10.3 mmol/L (3-11); BUN 9 mg/dL (7-18); Bilirubin, Total 0.52 mg/dL (0.2-1.0); CO2 28.7 mmol/L (21.0-32.0); Calcium 9.3 mg/dL (8.5-10.1); Chloride 102 mmol/L (98-107); Glucose 224 mg/dL (74-106); Magnesium 1.6 mg/dL (1.8-2.4); NT-proBNP 7 pg/mL (<300); Potassium 3.2 mmol/L (3.5-5.1); Sodium 141 mmol/L (136-145); Total Protein 7.7 g/dL (6.4-8.2); Troponin I 6 ng/L (<or=51)
[2024-07-14 09:56] LABS: D-Dimer 252 ng/mlFEU (<500)
[2024-07-14 10:16] LABS: Troponin I < 4 ng/L (<or=51)
[2024-07-14] MEDS: Ibuprofen 400 MG TAB PO (11:31)
== END 2024-07-14 11:33 | disposition home or self-care (01) ==
PROVIDERS: Emergency Provider Emergency Medicine; PCP Student in an Organized Health Care Education/Training Program
DX: R07.9 Chest pain, unspecified; I10 Essential (primary) hypertension
CPT/HCPCS: 36415; 80053; 93005; 99285; 71046; 83735; 83880; 84484; 84703; 85025; 85379; 85610; 85730; 93010; 99284

== ENCOUNTER 2024-07-27 20:31 | Emergency (ER) | payer MEDICAID, SELFPAY ==
[2013-05-25 10:13] VITALS: O2SAT 97
--- NOTE | 2024-07-27 20:30 | RT.EKG_ITS ---
APPROVED REPORT Exam: Resting ECG Reason for Exam: Patient Location: E HR:87 bpm ECG Measurements Heart Rate 87 AXIS AK 132 P 26 QRSd 75 QRS 22 QT 351 T 2 QTc 422 Conclusion Sinus rhythm 87 NORMAL AXIS NO STEMI
[2024-07-27 20:33] VITALS: BP 199/116; PULSE 108; RESP 22; O2SAT 96
[2024-07-27 20:38] VITALS: RESP 20
--- NOTE | 2024-07-27 20:47 | ED.GENADUL_ITS ---
Discharge Plan Disposition Patient Disposition: Home Discharge Details Clinical Impression: Chest pain, Elevated serum creatinine, Elevated blood pressure reading Primary Care Provider: Em Brand ED Provider: Savita Vela Home Meds and New Rx's Prescriptions: New pantoprazole 20 mg tablet,delayed release (DR/EC) 20 mg PO DAILY Qty: 7 0RF Continued propranolol 10 mg tablet 10 mg PO BID Qty: 60 6RF Rx Instructions: Continue @ 10mg dosing topiramate [Topamax] 25 mg tablet 25 mg PO QHS Qty: 90 3RF Rx Instructions: Take in addition to 50 mg tablet for a total of 75 mg at bedtime. prochlorperazine maleate 5 mg tablet 5 mg PO TID PRN (Reason: headaches) Qty: 30 3RF topiramate [Topamax] 50 mg tablet 50 mg PO QHS Qty: 60 3RF albuterol sulfate 90 mcg/actuation HFA aerosol inhaler 2 puff IH Q4H PRN (Reason: shortness of breath or wheezing) Qty: 6.7 1RF losartan 25 mg tablet 25 mg PO BID Qty: 60 1RF Rx Instructions: Trial 1/2 tablet daily in AM x 2 weeks; Increase to 1/2 tab 2/day (evening) Discharge Instructions Additional Instructions: I recommend that you call your primary care provider's office to have your creatinine and pressure rechecked on Saturday or Saturday, as it was elevated today. Be sure to drink plenty of water well-hydrated Please follow-up as scheduled on the with your primary care provider's office. Continue taking your blood pressure medications as prescribed. Your chest pain today was most likely due to esophageal spasm. It is likely that you have acid reflux that has been causing irritation to your esophagus. Please use pantoprazole every morning, taking it one hour before eating breakfast. Return to emergency care if you develop new severe chest pain, difficulty breathing, episodes of passing out, or if you are very worried and need to be rechecked again immediately Referrals: Em Brand DO [Primary Care Provider] - HPI General Date/Time Provider Initiated Documentation: 07/27/24 20:32 . HPI Narrative: Bridgett is a 23-year-old female with history of hypertension and IIH who presents to the emergency department today for evaluation of sudden onset of sternal chest discomfort after drinking some ice cold Powerade. She reports that she put Powerade in the freezer and drink a big gulp of it, with immediate chest pain afterwards. She reports is accompanied by anxiety, shortness of breath, and nausea. She denies associated fever/chills, cough, vomiting, change in p.o. intake, current abdominal pain, change in bowel or bladder function, calf redness/swelling/tenderness, pedal edema. He reports that over the last week she has had on and off discomfort around her bellybutton that resolved spontaneously. Has not taken any medications for this. She does take antihypertensives. Denies tobacco use no recent surgeries, hormone use, mobility, connective tissue disorders in the family or history of sudden . Mother did have mini heart attacks starting in her 30s-40s. Physical exam reassuring. Patient appears uncomfortable and anxious, holding her sternum. She is alert and oriented, easily conversational. Easy work of breathing, lung sounds clear bilaterally. Normal heart sounds. Moving all extremities equally. No calf redness/swelling/tenderness. Normal gait. BP elevated. DDx includes but is not limited to: Esophageal spasm, ACS, anxiety, GERD. Heart score 1, due to positive family history. No red flags concerning for PE. I independently interpreted the following tests: EKG reassuring, normal sinus rhythm with rate 87. No changes consistent with acute ischemia. CBC reassuring. While in the emergency department Bridgett received GI cocktail with no improvement in symptoms. She also received pantoprazole and 0.5 mg lorazepam with full improvement of symptoms. She is currently sitting comfortably in room, talking with her visitor. Overall workup today very reassuring. Consistent with esophageal spasm, especially as it fully resolved with medications. Recommend continued use of pantoprazole and follow-up with PCP. As her blood pressure was elevated in pat ient with known hypertension both today and previous visit on 07/14/24 and 07/23/24, recommend recheck of blood pressure by PCP. Reviewed discharge instructions with patient, including red flags indicate need for return to emergency care and symptomatic management. She voices agreement with plan of care. Related Data Home Medications ?Medication ?Instructions ?Recorded ?Confirmed albuterol sulfate 90 mcg/actuation 2 puff inhalation Q4H PRN 06/16/24 07/27/24 aerosol inhaler shortness of breath or wheezing #6.7 grams losartan 25 mg tablet 25 mg PO BID #60 tabs 06/16/24 07/27/24 prochlorperazine maleate 5 mg 5 mg PO TID PRN headaches #30 tabs 06/16/24 07/27/24 tablet topiramate 50 mg tablet (Topamax) 50 mg PO QHS #60 tabs 06/16/24 07/27/24 propranolol 10 mg tablet 10 mg PO BID #60 tabs 07/23/24 07/27/24 topiramate 25 mg tablet (Topamax) 25 mg PO QHS #90 tabs 07/23/24 07/27/24 pantoprazole 20 mg tablet,delayed 20 mg PO DAILY #7 tabs 07/27/24 release Previous Rx's ?Medication ?Instructions ?Recorded albuterol sulfate 90 mcg/actuation 2 puff inhalation Q4H PRN 06/16/24 aerosol inhaler shortness of breath or wheezing #6.7 grams losartan 25 mg tablet 25 mg PO BID #60 tabs 06/16/24 prochlorperazine maleate 5 mg 5 mg PO TID PRN headaches #30 tabs 06/16/24 tablet topiramate 50 mg tablet (Topamax) 50 mg PO QHS #60 tabs 06/16/24 propranolol 10 mg tablet 10 mg PO BID #60 tabs 07/23/24 topiramate 25 mg tablet (Topamax) 25 mg PO QHS #90 tabs 07/23/24 pantoprazole 20 mg tablet,delayed 20 mg PO DAILY #7 tabs 07/27/24 release Allergies Allergy/AdvReac Type Severity Reaction Status Date / Time bee venom protein (honey bee) Allergy Severe Other (See Verified 07/27/24 20:37 Comment) sweet potato Allergy Severe Anaphylaxsi Verified 07/27/24 20:37 s bug bites Allergy Skin Rash Uncoded 07/27/24 20:37 General Stated Complaint: Chest Pain COLTEN: 3 Review of Systems Narrative: see HPI Exam Const General: cooperative, healthy appearing, no acute distress, well developed, well groomed, anxious and well hydrated Nutritional Appearance: overweight Orientation: alert and oriented x3 Chest Chest: normal inspection of the chest Resp Effort & Inspection: normal respiratory effort and able to speak in complete s entences Auscultation: clear to auscultation bilaterally Cardio Jugular venous pressure: no JVD Rate: regular rate Rhythm: regular rhythm Extrem General: normal to inspection, full ROM, capillary refill normal, no pedal edema, no calf tenderness and normal gait Course Vital Signs Vital signs: Vital Signs Pulse 108 H 07/27/24 20:33 Respiratory Rate 22 07/27/24 20:33 Blood Pressure 199/116 H 07/27/24 20:33 Pulse Oximetry 96 07/27/24 20:33 Pulse 108 H 07/27/24 20:33 Respiratory Rate 20 07/27/24 20:38 Respiratory Effort Normal, Non-Labored 07/27/24 20:38 Respiratory Depth Normal 07/27/24 20:38 Respiratory Pattern Normal 07/27/24 20:38 Blood Pressure 199/116 H 07/27/24 20:33 Blood Pressure Position Sitting 07/27/24 20:33 Pulse Oximetry 96 07/27/24 20:33 Oxygen Delivery Method Room Air 07/27/24 20:33 Oxygen Flow Rate 0 07/27/24 20:33 Pain Level 9 07/27/24 20:38 Medical Decision Making Quality:SDOH Health Related Social Needs: Health related social needs inadequate housing, transp o insecurity Health related social needs details Getting RTC help PFSH All Active Problems (Updated 07/27/24 @ 21:41 by Savita Eldridge) Elevated blood pressure reading (Acute) Elevated serum creatinine (Acute) Chest pain (Acute) Pharyngitis, acute (Acute) Viral (rapid-strep NEG)(Cx normal natan) 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 Hx elevated diastolic BPs Papilledema (Acute) stable bilateral optic disc edema which appeared overall improved since December 2022 (per [facility] Care from 12/06/2023) Migraine headache (Chronic) Musculoskeletal chest pain (Acute) Medical History Asthma complicating in first trimester Headache Black-out (not amnesia) History of prematurity 2.5 months early per Mother Asthma Family History Mother Anxiety Asthma Depression Social History Smoking/Tobacco Use Status: Never Smoking risk assessment performed?: Yes Alcohol Intake: never Drug use: Never Substance use type: does not use Adopted: No Caregiver/Support person: No Foster care: No Household members: family Number of Children: 0 number of grandchildren: 0 Communication Needs: None Education Level: high school current occupation: [employer] Pets and animals: Yes (2 cats, 1 dog) Pets and animals: cat(s) and dog(s) Sexually active: No Do you think of yourself as: bisexual Current gender identity: female What is your relationship status?: never How often do you talk on the phone with friends or family?: three or more times per week How often do you get together with friends or relatives?: twice per week Do you belong to any clubs or organized social groups?: no Panel score (0-1 are the most socially isolated patients): 1 What type of physical activity do you participate in: walking Duration: 45-60 minutes/day Frequency: daily Nisha/Taoist: None Special nisha needs: No Seatbelt use: always Helmet use: No Drive intox or ride w/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 No inter action with Bio Dad. Female Reproductive History Menstrual Age of Menarche: 12 control method: none
--- NOTE | 2024-07-27 21:00 | DI.RAD_ITS ---
Exam(s) XR CHEST 2V PA LATERAL EXAM: XR CHEST 2V PA LATERAL CLINICAL HISTORY: chest pain. TECHNIQUE: 2D digital imaging was performed. COMPARISON: CR XR CHEST 2V PA LATERAL from 07/14/2024 FINDINGS: 2 views: Heart size is normal. The mediastinum is not widened. Right hemidiaphragm again noted be moderately elevated. Lungs are clear. No infiltrates nor pleural effusions. IMPRESSION: No acute pulmonary findings.Somewhat elevated right hemidiaphragm again noted. DATA REPOSITORY: RADIATION DOSE DELIVERED:
[2024-07-27 21:15] LABS: Abs Immature Grans 0.05 10^3/uL (0.0-0.06); Absolute Basophil Count 0.06 10^3/uL (0.0-0.2); Absolute Eosinophil Count 0.19 10^3/uL (0.0-0.7); Absolute Monocyte Count 0.64 10^3/uL (0.1-0.8); Absolute Neutrophil Count 5.69 10^3/uL (1.2-6.7); Basophils % 0.6 %; Eosinophils % 1.8 %; HCT 46.2 % (36.0-46.0); HGB 14.9 g/dL (11.2-15.7); Immature Grans % 0.5 %; Lymphocytes % 35.8 %; MCH 29.1 pg (27.0-33.0); MCHC 32.3 % (32.0-36.0); MCV 90 fL (80-95); MPV 11.3 fL (8.0-11.0); Monocytes % 6.2 %; Neutrophils % 55.1 %; Platelet Count 318 10^3/uL (130-400); RBC 5.12 10^6/uL (3.93-5.22); RDW 11.8 % (11.7-14.6); RDW-SD 39.1 fL; WBC 10.33 10^3/uL (4.4-10.8)
[2024-07-27] MEDS: Pantoprazole 20 MG TABCR PO (21:18)
[2024-07-27] MEDS: LORazepam 0.5 MG TAB PO (21:18)
[2024-07-27 21:33] LABS: ALT 120 U/L (14-59); AST 91 U/L (15-37); Albumin 3.7 g/dL (3.4-5.0); Alkaline Phosphatase 130 U/L (46-116); BUN 15 mg/dL (7-18); Bilirubin, Total 0.51 mg/dL (0.2-1.0); CREATININE 1.6 mg/dL (0.55-1.02); Calcium 9.7 mg/dL (8.5-10.1); Chloride 107 mmol/L (98-107); Estimated GFR 46.76 (mL/min/1.73m2); Glucose 143 mg/dL (74-106); Magnesium 1.8 mg/dL (1.8-2.4); Potassium 4.1 mmol/L (3.5-5.1); Sodium 145 mmol/L (136-145); Total Protein 7.8 g/dL (6.4-8.2)
[2024-07-27 21:34] LABS: Troponin I < 4 ng/L (<or=51)
[2024-07-27 21:39] VITALS: BP 169/112; PULSE 80; RESP 18; O2SAT 99
[2024-07-27 21:46] VITALS: BP 152/102
--- NOTE | 2024-07-27 23:00 | DI.VRAD_ITS ---
PROCEDURE INFORMATION: Exam: XR Chest Exam date and time: 07/27/2024 9:27 PM Age: 23 years old Clinical indication: Other: Chest pain TECHNIQUE: Imaging protocol: Radiologic exam of the chest. Views: 2 views. COMPARISON: CR XR CHEST 2V PA LATERAL 07/14/2024 9:02 AM FINDINGS: Lungs: Unremarkable. No consolidation. Pleural spaces: Unremarkable. No pleural effusion. No pneumothorax. Heart/Mediastinum: Unremarkable. No cardiomegaly. Bones/joints: Unremarkable. IMPRESSION: No acute findings. Dictated and Authenticated by: Elissa Malhotra MD. Ordering:DARRICK Barney MD
--- NOTE | 2024-07-28 08:32 | NUR.NOTE ---
Access chart to reconcile EKG orders with EKG's in [facility]. Duplicate order cancelled. Nursing Note:
== END 2024-07-27 21:46 | disposition home or self-care (01) ==
PROVIDERS: Emergency Provider Nurse Practitioner Family; PCP Student in an Organized Health Care Education/Training Program
DX: R07.9 Chest pain, unspecified (principal); R79.89 Other specified abnormal findings of blood chemistry; I10 Essential (primary) hypertension; G93.2 Benign intracranial hypertension
CPT/HCPCS: 36415; 80053; 93005; 99285; 71046; 83735; 84484; 85025; 93010; 99284

== ENCOUNTER 2024-07-31 02:51 | Emergency (ER) | payer MEDICAID, SELFPAY ==
[2013-05-25 10:13] VITALS: O2SAT 97
[2024-07-31] VITALS (8 sets, daily range): BP systolic 137–150; BP diastolic 97–113; PULSE 70–89; RESP 16–18; TEMP 36.6; O2SAT 97–99
--- NOTE | 2024-07-31 02:45 | RT.EKG_ITS ---
APPROVED REPORT Exam: Resting ECG Reason for Exam: chest pain Patient Location: E HR:79 bpm ECG Measurements Heart Rate 79 AXIS TX 134 P 30 QRSd 79 QRS 21 QT 358 T 12 QTc 410 Conclusion Sinus rhythm...normal P axis, V-rate 60- 99 I have reviewed and interpreted ECG and agree with software generated interpretation.
--- NOTE | 2024-07-31 03:05 | W.ED.GENAD ---
Discharge Plan Disposition Patient Disposition: Home Condition: Good Discharge Details Chief Complaint: RespSymp Clinical Impression: Epigastric discomfort, Abnormal transaminases Primary Care Provider: Em Brand ED Provider: Andrea Perez Home Meds and New Rx's Prescriptions: No Action propranolol 10 mg tablet 10 mg PO BID Qty: 60 6RF Rx Instructions: Continue @ 10mg dosing topiramate [Topamax] 25 mg tablet 25 mg PO QHS Qty: 90 3RF Rx Instructions: Take in addition to 50 mg tablet for a total of 75 mg at bedtime. pantoprazole 20 mg tablet,delayed release (DR/EC) 20 mg PO DAILY Qty: 30 0RF prochlorperazine maleate 5 mg tablet 5 mg PO TID PRN (Reason: headaches) Qty: 30 3RF topiramate [Topamax] 50 mg tablet 50 mg PO QHS Qty: 60 3RF albuterol sulfate 90 mcg/actuation HFA aerosol inhaler 2 puff IH Q4H PRN (Reason: shortness of breath or wheezing) Qty: 6.7 1RF losartan 25 mg tablet 25 mg PO BID Qty: 60 1RF Rx Instructions: Trial 1/2 tablet daily in AM x 2 weeks; Increase to 1/2 tab 2/day (evening) Discharge Instructions Instructions: Abdominal Pain, Adult ED Additional Instructions: At this time your workup has shown no significant abnormality for your heart, or your lungs. There is no evidence of pancreatitis, blood clots or heart attack. However, you do have a notable elevation of your liver enzymes. The CAT scan does show a fatty liver, which could be a component of your elevated liver enzymes. Please avoid Tylenol until you follow-up with your primary care provider. Please use a heating pad or ice to your sternum when you develop this pain again. It is also reasonable to take Tums or Pepto-Bismol if the pain recurs. If you notice any worsening of your symptoms, or any new symptoms such as vomiting, diarrhea, fever, chills, shortness of breath, chest pain, numbness, weakness, or fainting , please return immediately to the emergency department for reevaluation. Please follow up with your primary care provider as soon as possible for reassessment and reevaluation. As always, it was a pleasure participating in your medical care today. Referrals: Em Brand DO [Primary Care Provider] - [facility] General Date/Time Provider Initiated Documentation: 07/31/24 02:52. [facility] Narrative: This is a pleasant 23-year-old female with a past medical history of pityriasis versicolor, hypertension, idiopathic intracranial hypertension, who presents today for evaluation of chest pain. Patient's had similar episode about a week ago, chest x-ray is negative, workup benign. She was discharged home. She was given antiacid medications for home use, which she states she has been taking as directed. Today she woke up at midnight with a sharp sensation in her sternal region. It is made worse with breathing, and slightly hard to take deep breath. She states that a few minutes later it began to dissipate, and it is almost gone if she ignores it, but it comes back if she moves, pushes on it, or takes a deep breath. She denies any falls or trauma. She does not smoke. She is not on control. Denies PE risk factors such as recent long car rides, immobilization, recent surgery, prior history of DVT or PE, family history of PE or DVT, morbid obesity, exogenous estrogen and smoking, hemoptysis, history of cancer. No other complaints at this time. Related Data Home Medications ?Medication ?Instructions ?Recorded ?Confirmed albuterol sulfate 90 mcg/actuation 2 puff inhalation Q4H PRN 06/16/24 07/31/24 aerosol inhaler shortness of breath or wheezing #6.7 grams losartan 25 mg tablet 25 mg PO BID #60 tabs 06/16/24 07/31/24 prochlorperazine maleate 5 mg 5 mg PO TID PRN headaches #30 tabs 06/16/24 07/31/24 tablet topiramate 50 mg tablet (Topamax) 50 mg PO QHS #60 tabs 06/16/24 07/31/24 propranolol 10 mg tablet 10 mg PO BID #60 tabs 07/23/24 07/31/24 topiramate 25 mg tablet (Topamax) 25 mg PO QHS #90 tabs 07/23/24 07/31/24 pantoprazole 20 mg tablet,delayed 20 mg PO DAILY #30 tabs 07/29/24 07/31/24 release Previous Rx's ?Medication ?Instructions ?Recorded albuterol sulfate 90 mcg/actuation 2 puff inhalation Q4H PRN 06/16/24 aerosol inhaler shortness of breath or wheezing #6.7 grams losartan 25 mg tablet 25 mg PO BID #60 tabs 06/16/24 prochlorperazine maleate 5 mg 5 mg PO TID PRN headaches #30 tabs 06/16/24 tablet topiramate 50 mg tablet (Topamax) 50 mg PO QHS #60 tabs 06/16/24 propranolol 10 mg tablet 10 mg PO BID #60 tabs 07/23/24 topiramate 25 mg tablet (Topamax) 25 mg PO QHS #90 tabs 07/23/24 pantoprazole 20 mg tablet,delayed 20 mg PO DAILY #30 tabs 07/29/24 release Allergies Allergy/AdvReac Type Severity Reaction Status Date / Time bee venom protein (honey bee) Allergy Severe Other (See Verified 07/31/24 02:58 Comment) sweet potato Allergy Severe Anaphylaxsi Verified 07/31/24 02:58 s bug bites Allergy Skin Rash Uncoded 07/31/24 02:58 General Stated Complaint: RespSymp COLTEN: 4 Review of Systems All systems reviewed & are unremarkable except as noted in HPI and below Exam Narrative Exam Narrative: 1.Const: Well-nourished, Well-developed, appearing stated age 2.Eyes: PERRL, no conjunctival injection, and symmetrical lids. 3.ENT: Atraumatic external nose and ears. Moist MM. Neck: Symmetric, trachea midline, No thyromegaly. 4.CVS: +S1/S2, No murmurs or gallops. Peripheral pulses 2+ and equal in all extremities. Brisk capillary refill in all extremities. 5.RESP: Unlabored respiratory effort. Clear to auscultation bilaterally. No wheezes rales or rhonchi 6.GI: Soft, Nontender/Nondistended, No hepatosplenomegaly. No guarding or rebound. 7.MSK: Normocephalic/Atraumatic, Extremities w/o deformity or ttp No cyanosis or clubbing, Normal movement of all extremities. Reproducible chest pain that is consistent with her own pain on palpation of the lower sternum. No bruising. No rash. 8.Skin: Warm, Dry. 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 Sensation grossly intact, no focal neurologic deficits. 10.Psych: (AAO) x3. Appropriate mood and affect Course Vital Signs Vital signs: Vital Signs Temperature 36.6 C 07/31/24 02:52 Pulse 89 07/31/24 02:52 Respiratory Rate 18 07/31/24 02:52 Blood Pressure 150/109 H 07/31/24 02:52 Pulse Oximetry 99 07/31/24 02:52 Temperature 36.6 C 07/31/24 02:52 Pulse 89 07/31/24 02:52 Respiratory Rate 18 07/31/24 02:59 Respiratory Effort Normal, Non-Labored 07/31/24 02:59 Respiratory Depth Normal 07/31/24 02:59 Respiratory Pattern Normal 07/31/24 02:59 Blood Pressure 150/109 H 07/31/24 02:52 Blood Pressure Position Sitting 07/31/24 02:52 Pulse Oximetry 99 07/31/24 02:52 Oxygen Delivery Method Room Air 07/31/24 02:52 Oxygen Flow Rate 0 07/31/24 02:52 Medical Decision Making This is a pleasant 23-year-old female with a past medical history of pityriasis versicolor, hypertension, idiopathic intracranial hypertension, who presents today for evaluation of chest pain. Patient's had similar episode about a week ago, chest x-ray is negative, workup benign. She was discharged home. She was given antiacid medications for home use, which she states she has been taking as directed. Today she woke up at midnight with a sharp sensation in her sternal region. It is made worse with breathing, and slightly hard to take deep breath. She states that a few minutes later it began to dissipate, and it is almost gone if she ignores it, but it comes back if she moves, pushes on it, or takes a deep breath. She denies any falls or trauma. She does not smoke. She is not on control. Denies PE risk factors such as recent long car rides, immobilization, recent surgery, prior history of DVT or PE, family history of PE or DVT, morbid obesity, exogenous estrogen and smoking, hemoptysis, history of cancer. No other complaints at this time. Exam demonstrates well-appearing female,Reproducible chest pain is present on palpation of her lower sternum. No calf tenderness, no pitting edema. Lungs are clear. Symptoms appear consistent with musculoskeletal related chest pain. Chest x-ray negative for pneumothorax. However out of an abundance of precaution differential does include but is notably less likely for PE, cardiac etiology. Symptoms appearing consistent with dissection. Will get basic labs, screening EKG, apply Lidoderm patch and give Toradol for pain control, monitor closely and reassess. 6:05 AM Patient's pain improved significantly with NSAID therapy. Laboratory workup has returned, patient has normal platelets, normal hemoglobin. Transaminases are notably elevated at 292 and 266. Alk phos is high, but bilirubin is normal. Lipase normal, troponin normal. I did question the patient, she denies any IV drug use, excessive Tylenol use (her levels here were normal), excessive seafood intake or raw seafood intake. Patient is feeling better, she has tolerated p.o. well. No vomiting or diarrhea. She does have an appointment with her primary care provider in 11 days. We will recommend close follow-up with her PCP. CT scan of the chest abdomen pelvis shows no acute process, no PE, no cholecystitis or other significant abnormality aside for fatty liver. Patient stable for discharge. Suspect a combination of musculoskeletal and potential reflux as a cause of her symptomatology, however she does need close follow-up for transaminitis. We did send a hepatitis panel for outpatient follow-up. I have extensively reviewed the treatment plan and discharge instructions with the patient. I have addressed all patient concerns at this time. The patient was made aware of what symptoms to monitor for that would warrant a return to the emergency department. Discussed the plan with the patient, they demonstrate verbal understanding and agreement with our assessment and plan at this time. The documentation in this chart was dictated using [employer] dictation software. Please excuse any dictation errors. FINDINGS: VASCULATURE: Pulmonary arteries: Normal. No pulmonary emboli. Aorta: Normal aorta. Celiac trunk and mesenteric arteries: No occlusion or significant stenosis. Renal arteries: No occlusion or significant stenosis. Right iliac arteries: No occlusion or significant stenosis. Left iliac arteries: No occlusion or significant stenosis. CHEST: Lungs: Unremarkable. No consolidation. No masses Pleural spaces: Unremarkable. No pneumothorax. No pleural effusion. Heart: Unremarkable. No cardiomegaly. No pericardial effusion. ABDOMEN AND PELVIS: Liver: Hepatic steatosis. Gallbladder and biliary ducts: Unremarkable. No calcified stones. No ductal dilation. Pancreas: Unremarkable. No mass. No ductal dilation. Spleen: Unremarkable. No splenomegaly. Adrenal glands: Unremarkable. No mass. Kidneys and ureters: Unremarkable. No solid mass. No hydronephrosis. Stomach and bowel: Unremarkable. No obstruction. No mucosal thickening. Appendix: No evidence of appendicitis. Intraperitoneal space: Unremarkable. No free air. No significant fluid collection. Urinary bladder: Unremarkable. No mass. Reproductive: Unremarkable as visualized. Lymph nodes: Unremarkable. No enlarged lymph nodes. Bones/joints: Unremarkable. No acute fracture. Soft tissues: Unremarkable. IMPRESSION: 1. Normal aorta. 2. No evidence of PE. Thank you for allowing us to participate in the care of your patient. 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 Hx elevated diastolic BPs Papilledema (Acute) stable bilateral optic disc edema which appeared overall improved since December 2022 (per [facility] from 12/06/2023) Migraine headache (Chronic) Musculoskeletal chest pain (Acute) Medical History Asthma complicating in first trimester Headache Black-out (not amnesia) History of prematurity 2.5 months early per Mother Asthma Family History Mother Anxiety Asthma Depression Social History (Reviewed 07/31/24 @ 03:07 GAURANG Carl Smoking/Tobacco Use Status: Never Smoking risk assessment performed?: Yes Alcohol Intake: never Drug use: Never Substance use type: does not use Adopted: No Caregiver/Support person: No Foster care: No Household members: family Number of Children: 0 number of grandchildren: 0 Communication Needs: None Education Level: high school current occupation: [employer] Pets and animals: Yes (2 cats, 1 dog) Pets and animals: cat(s) and dog(s) Sexually active: No Do you think of yourself as: bisexual Current gender identity: female What is your relationship status?: never How often do you talk on the phone with friends or family?: three or more times per week How often do you get together with friends or relatives?: twice per week Do you belong to any clubs or organized social groups?: no Panel score (0-1 are the most socially isolated patients): 1 What type of physical activity do you participate in: walking Duration: 45-60 minutes/day Frequency: daily Nisha/Holiness: None Special nisha needs: No Seatbelt use: always Helmet use: No Drive 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 No interaction with Bio Dad. Female Reproductive History Menstrual Age of Menarche: 12 control method: none
[2024-07-31] MEDS: Ketorolac 15 MG/ML VIAL IVP (03:08)
[2024-07-31] MEDS: Lidocaine 5% Patch 1 PATCH TP (03:09)
[2024-07-31 03:19] LABS: Abs Immature Grans 0.04 10^3/uL (0.0-0.06); Absolute Basophil Count 0.08 10^3/uL (0.0-0.2); Absolute Eosinophil Count 0.19 10^3/uL (0.0-0.7); Absolute Lymphocyte Count 4.09 10^3/uL (1.2-3.4); Basophils % 0.7 %; Eosinophils % 1.6 %; HCT 43.5 % (36.0-46.0); HGB 14.3 g/dL (11.2-15.7); Immature Grans % 0.3 %; Lymphocytes % 34.6 %; MCH 29.2 pg (27.0-33.0); MCHC 32.9 % (32.0-36.0); MCV 89 fL (80-95); MPV 11.2 fL (8.0-11.0); Monocytes % 7.4 %; Neutrophils % 55.4 %; Platelet Count 329 10^3/uL (130-400); RBC 4.89 10^6/uL (3.93-5.22); RDW 11.7 % (11.7-14.6); RDW-SD 38.3 fL; WBC 11.83 10^3/uL (4.4-10.8)
[2024-07-31 03:21] LABS: Absolute Monocyte Count 0.88 10^3/uL (0.1-0.8); Absolute Neutrophil Count 6.55 10^3/uL (1.2-6.7)
[2024-07-31 03:31] LABS: ALT 266 U/L (14-59); AST 292 U/L (15-37); Albumin 3.5 g/dL (3.4-5.0); Alkaline Phosphatase 139 U/L (46-116); Anion Gap 9.2 mmol/L (3-11); BUN 13 mg/dL (7-18); Bilirubin, Total 0.71 mg/dL (0.2-1.0); CO2 29.8 mmol/L (21.0-32.0); CREATININE 1.1 mg/dL (0.55-1.02); Chloride 106 mmol/L (98-107); Estimated GFR 73.31 (mL/min/1.73m2); Glucose 137 mg/dL (74-106); Lipase 64 U/L (16-77); Potassium 3.9 mmol/L (3.5-5.1); Sodium 145 mmol/L (136-145); Total Protein 7.3 g/dL (6.4-8.2); Troponin I < 4 ng/L (<or=51)
[2024-07-31 03:35] LABS: Calcium 9.1 mg/dL (8.5-10.1)
[2024-07-31 03:45] LABS: D-Dimer 648 ng/mlFEU (<500)
--- NOTE | 2024-07-31 03:46 | DI.CT_ITS ---
Exam(s) CT CHEST PE ABD PELVIS W EXAM: CT CHEST PE ABD PELVIS W CLINICAL HISTORY: chest pain, elevated dimer, eval for PE, transaminitis, epigastric pain. TECHNIQUE: Imaging Protocol: Axial CT angiography was performed with multi-slice acquisition and m ulti-planar and/or 3D reconstructions. CONTRAST MATERIAL: Intravenous: Omnipaque 350 Contrast volume:100 ml Oral: None COMPARISON: No exams were available for comparison FINDINGS: CHEST: PULMONARY ARTERIES: There are no intra-arterial filling defects to suggest the presence of acute pulm onary emboli. LUNGS: There is no evidence of pulmonary infarction.Confluent infiltrates there are no pleural effusi ons. MEDIASTINUM: There is no hilar nor mediastinal adenopathy. Visualized thyroid unremarkable. CARDIAC: Heart size is normal. There is no pericardial effusion. There is no significant shift of t he interventricular septum.Caliber of the thoracic aorta is within normal limits. No evidence of aor tic dissection. OSSEOUS: No significant osseous lesions.. ABDOMEN: There is no ascites. LIVER: Liver is hypodense implying steatosis. There no discrete focal hepatic lesions identified. N o dilated intrahepatic ducts. GALLBLADDER/BILIARY: Subtle suggestion of a possible gallstone in the gallbladder neck. Gallbladder size is upper normal-minimally prominent. Gallbladder does not appear edematous and there is no trena cholecystic fluid. The CBD is slightly prominent measuring 1 cm. There are no obvious radiopaque ca lculi in the CBD. CBD is not dilated. PANCREAS: No evidence of pancreatic mass nor dilatation of the pancreatic duct. No evidence of pancr eatitis. SPLEEN: Spleen is not enlarged. There are no intrasplenic lesions. Splenic and portal veins are johnston nt. ADRENALS: There are no significant adrenal masses. KIDNEYS:No cysts evident. No calculi nor hydronephrosis. No solid renal masses. ABDOMINAL AORTA: Abdominal aorta is not enlarged. LYMPH NODES: There is no retroperitoneal or para-aortic adenopathy. ABDOMINAL WALL/GI: No evidence of significant anterior abdominal wall hernia. No bowel obstruction. PELVIS: LYMPH NODES: There is no intrapelvic nor inguinal adenopathy. GI: No evidence of appendicitis.No evidence of sigmoid diverticulitis. URINARY BLADDER: No calculi nor masses evident REPRODUCTIVE: Uterus and ovaries appear age-appropriate. No extraovarian adnexal masses. No free fl uid in the pelvis. OSSEOUS: No significant osseous lesions. IMPRESSION: 1. Subtle suggestion of possible gallstone in the gallbladder neck. No gallbladder wall edema. The CBD is prominent measuring 1 cm. There is no obvious radiopaque calculus in the lower CBD. 2. Hepatic steatosis evident. No discrete focal hepatic lesions. No ascites. 3. Pancreas appears unremarkable with no dilatation of the pancreatic duct and no evidence of acute p ancreatitis. Please note that ultrasound performed today reveals multiple gallstones in the gallbladder lumen incl uding 1 in the gallbladder neck. Please refer to that separate dictation. Report called by myself to ER 07/31/2024 at 1:03 p.m. RADIATION DOSE DELIVERED: 746.21mGy.cm Total DLP DATA REPOSITORY: All CT scans at this facility are submitted to the National Radiology Data Registry (NRDR) Dose Index Registry (DIR) with the [employer] (ACR). RADIATION OPTIMIZATION: All CT scans at this facility use at least one of these dose optimization te chniques: automated exposure control; mA and/or kV adjustment per patient size (includes targeted exa ms where dose is matched to clinical indication); or iterative reconstruction.
[2024-07-31 04:02] LABS: Bilirubin Negative (Negative); Blood Negative (Negative); Clarity Clear (Clear); Glucose Negative (Negative); Ketones Negative (Negative); Leukocyte Esterase Negative (Negative); Nitrite Negative (Negative)
[2024-07-31 04:32] LABS: Acetaminophen < 2 ug/mL (10-30)
[2024-07-31] MEDS: Normal Saline - Diluent 50 ML VIAL IJ (04:40)
[2024-07-31] MEDS: Omnipaque 350 MG/ML 100 ML BTL IJ (04:41)
[2024-07-31] MEDS: ACETAMINOPHEN 1,000 MG/100 ML BTL 400 MG IVPB (05:37)
--- NOTE | 2024-07-31 05:50 | DI.VRAD_ITS ---
Addendum created by Mamadou Mallory MD on 07/31/2024 5:57:10 AM EDT: The central intrahepatic bile ducts are minimally prominent but there is no extrahepatic biliary ductal dilatation no choledocholithiasis or pawel hepatis/pancreatic head mass. The gallbladder is distended and the mild fullness of the bile ducts may be related to patient's fasting state. Case reviewed with Dr. Perez at time of interpretation. Initial report created on 07/31/2024 5:49:45 AM EDT: PROCEDURE INFORMATION: Exam: CTA Chest With Contrast CTA Abdomen and Pelvis With Contrast Exam date and time: 07/31/2024 4:37 AM Age: 23 years old Clinical indication: Other: Chest pain; Abdominal pain; Epigastric; Additional info: Chest pain, elevated dimer, eval for pe, transaminitis, epigastric pain TECHNIQUE: Imaging protocol: Computed tomographic angiography of the chest with contrast. Exam focused on the arteries. Computed tomographic angiography of the abdomen and pelvis with contrast. Exam focused on the arteries. 3D rendering (Not supervised by radiologist): MIP and/or 3D reconstructed images were created by the technologist. Contrast material: OMNI 350; Contrast volume: 100 ml; Contrast route: INTRAVENOUS (IV); COMPARISON: CR XR CHEST 2V PA LATERAL 07/27/2024 9:27 PM FINDINGS: VASCULATURE: Pulmonary arteries: Normal. No pulmonary emboli. Aorta: Normal aorta. Celiac trunk and mesenteric arteries: No occlusion or significant stenosis. Renal arteries: No occlusion or significant stenosis. Right iliac arteries: No occlusion or significant stenosis. Left iliac arteries: No occlusion or significant stenosis. CHEST: Lungs: Unremarkable. No consolidation. No masses. Pleural spaces: Unremarkable. No pneumothorax. No pleural effusion. Heart: Unremarkable. No cardiomegaly. No pericardial effusion. ABDOMEN AND PELVIS: Liver: Hepatic steatosis. Gallbladder and biliary ducts: Unremarkable. No calcified stones. No ductal dilation. Pancreas: Unremarkable. No mass. No ductal dilation. Spleen: Unremarkable. No splenomegaly. Adrenal glands: Unremarkable. No mass. Kidneys and ureters: Unremarkable. No solid mass. No hydronephrosis. Stomach and bowel: Unremarkable. No obstruction. No mucosal thickening. Appendix: No evidence of appendicitis. Intraperitoneal space: Unremarkable. No free air. No significant fluid collection. Urinary bladder: Unremarkable. No mass. Reproductive: Unremarkable as visualized. Lymph nodes: Unremarkable. No enlarged lymph nodes. Bones/joints: Unremarkable. No acute fracture. Soft tissues: Unremarkable. IMPRESSION: 1. Normal aorta. 2. No evidence of PE. Dictated and Authenticated by: Mamadou Mallory MD. Ordering:POLINA Mendez MD
[2024-08-03 14:42] LABS: Hepatitis A Antibody IgM Equivocal (Negative); Hepatitis B Core Antibody Negative (Negative); Hepatitis B surface Ag Negative (Negative); Hepatitis C Ab w Rflx HCV PCR Negative (Negative)
== END 2024-07-31 06:09 | disposition home or self-care (01) ==
PROVIDERS: Emergency Provider Student in an Organized Health Care Education/Training Program; PCP Student in an Organized Health Care Education/Training Program
DX: R07.9 Chest pain, unspecified (principal); R10.13 Epigastric pain; K80.20 Calculus of gallbladder without cholecystitis without obstruction; R74.01 Elevation of levels of liver transaminase levels
CPT/HCPCS: 71275; 74177; 80053; 81025; 83690; 86704; 86709; 86803; 87340; 93005; 96365; 96375; 99285; 80329; 81003; 84484; 85025; 85379; 93010; 99284; J0131; J1885; J3490

== ENCOUNTER 2024-07-31 11:08 | Observation (INO) | payer MEDICAID, SELFPAY ==
[2013-05-25 10:13] VITALS: O2SAT 97
[2024-07-31 11:08] VITALS: BP 134/90; PULSE 110; RESP 18; TEMP 36.3; O2SAT 97
--- NOTE | 2024-07-31 11:15 | DI.US_ITS ---
Exam(s) US ABDOMEN LIMITED EXAM: US ABDOMEN LIMITED CLINICAL HISTORY: RUQ pain, elevated LFTs TECHNIQUE: Ultrasound abdomen performed using standard protocol. COMPARISON: CT CT CHEST PE ABD PELVIS W from 07/31/2024 FINDINGS: There is no ascites evident. LIVER: Mildly hyperechoic indicating element steatosis. There no discrete focal hepatic lesions evid ent. GALLBLADDER/BILIARY: There are multiple gallstones in the gallbladder lumen. One of these calculi ap pears stationary in the gallbladder neck region. Gallbladder wall thickness is upper normal. There is no pericholecystic fluid. The common hepatic duct ismildly dilated, measuring 9mm at the level of pawel hepatis. PANCREAS: There is no evidence of pancreatic mass nor dilatation of the pancreatic duct. RIGHT KIDNEY:No evidence of solid mass, calculus, nor hydronephrosis. No cortical cysts evident. IMPRESSION: 1. Multiple gallstones/cholelithiasis. There is no pericholecystic fluid nor gallbladder wall edema . However, this CBD is dilated, measuring 9 mm. Cannot exclude possibility of a calculus within the CBD. This area is somewhat obscured by overlying bowel gas on the present ultrasound study. 2. Mild hepatic steatosis. No discrete focal hepatic lesions evident 3. There is no ascites. DATA REPOSITORY:
[2024-07-31] MEDS: Ondansetron 4 MG/2 ML VIAL IVP (12:24)
[2024-07-31 12:51] LABS: ALT 654 U/L (14-59); AST 726 U/L (15-37); Albumin 3.7 g/dL (3.4-5.0); Alkaline Phosphatase 163 U/L (46-116); Anion Gap 7.2 mmol/L (3-11); BUN 12 mg/dL (7-18); Bilirubin, Total 2.11 mg/dL (0.2-1.0); CO2 30.8 mmol/L (21.0-32.0); Chloride 106 mmol/L (98-107); Glucose 135 mg/dL (74-106); Potassium 3.9 mmol/L (3.5-5.1); Sodium 144 mmol/L (136-145); Total Protein 7.6 g/dL (6.4-8.2)
[2024-07-31 12:55] LABS: Lipase > 375 U/L (16-77)
--- NOTE | 2024-07-31 13:30 | DI.MRI_ITS ---
Exam(s) MR ABDOMEN WO EXAM: MR ABDOMEN WO CLINICAL HISTORY: Choledocholithiasis TECHNIQUE: Multiplanar multisequence MRI of the Abdomen was performed. MRCP sequences also performed. COMPARISON: CT CT CHEST PE ABD PELVIS W from 07/31/2024 US US ABDOMEN LIMITED from 07/31/2024 FINDINGS: Exam is limited by motion. Liver: Unremarkable. Gallbladder: 2 large stones and several tiny stones. No wall thickening or pericholecystic fluid. G allbladder is not abnormally distended. Bile Ducts: Common bile duct again noted to be dilated for the patient's age, measuring 9 millimeters proximally. The the duct tapers into the pancreatic head. Pancreas: Unremarkable. Adrenals: Unremarkable. Kidneys: Duplex left collecting system. Spleen: Unremarkable. Aorta: Unremarkable. Soft Tissues: Unremarkable. Bone: Unremarkable. Lymph Nodes: Unremarkable. Mesentery: No ascites. No focal fluid collection. Bowel: No abnormal dilatation or wall thickening. IMPRESSION: Cholelithiasis. No evidence of acute cholecystitis. No common duct stones. The proximal common kali e duct is dilated however tapers normally into the pancreatic head. DATA REPOSITORY:
--- NOTE | 2024-07-31 13:41 | HPE_ITS ---
Date of service: 07/31/24 Time of Service: 13:41 Assessment and Plan Assessment and plan (1) Gallstone pancreatitis: Status: Acute Assessment and plan: The history, exam, biochemistry all seem consistent with gallstone pancreatitis, with her lipase being above our measurable detected limit. I suspect she has had ongoing symptomatic cholelithiasis, and probably had migration of a stone into the duct which caused a change in the character of her symptoms today. I think during the first ER visit, the stone was migrating through the duct causing some elevation of the transaminases, but had not yet triggered the pancreatitis. With the lipase elevated as high as it is, and some biochemistry consistent with obstructive cholestasis, I think an MRCP to rule out choledocholithiasis is the most prudent course of action here. Will try to minimize IV fluids given the IV shortage, and see how she tolerates some basic sips of clear liquids. I will repeat the lipase tomorrow, and see how her pain evolves. Hopefully, she is passing the stone and the symptoms will improve. Once the active component of the pancreatitis resolves, then she will need cholecystectomy as definitive treatment to prevent this from happening again. At this point, I think we can hold antibiotics as it does not seem totally consistent with cholangitis. But I will certainly repeat the white blood cell count in the morning as well. History of Present Illness History of Present Illness Chief Complaint: Abdominal pain Narrative: Sunni is 23 years old. She has been experiencing nonspecific abdominal and chest discomfort for several weeks. Preliminary diagnosis included dyspepsia from gastritis, or perhaps esophagitis. In the course of the workup, she had increasing pain, and came back to the emergency department early this morning, with pain more localized around the mid epigastrium. She has some mild elevation of her liver function test, and underwent a CT scan that demonstrated cholelithiasis without evidence of cholecystitis. There was no evidence of biliary obstruction at that time, and her lipase was normal and she was subsequently discharged. However, her pain seemed to localize more towards the mid epigastrium, and became increasingly worse, so she returned to the emergency department. By the time she came back to the ER, her lipase was elevated above the highest level. She underwent an ultrasound that did suggest the possibility of a dilated common bile duct, but this was partially obscured by overlying bowel gas. Review of Systems Constitutional Constitutional: Reports fatigue, Denies fever(s) and Reports poor appetite Eyes Eyes: Reports system reviewed and no additional complaints, except as documented ENT Ears, Nose, Mouth, and Throat: Reports system reviewed and no additional complaints, except as documented Cardiovascular Cardiovascular: Reports chest pain (Partially mid epigastric) and Denies dyspnea Respiratory Respiratory: Denies chest congestion, Denies cough and Denies dyspnea Gastrointestinal Gastrointestinal: Reports abdominal pain, Denies hematochezia, Reports early satiety, Reports nausea and Denies vomiting Genitourinary Genitourinary: Reports system reviewed and no additional complaints, except as documented Musculoskeletal Musculoskeletal: Reports system reviewed and no additional complaints, except as documented Endocrine Endocrine: Denies cold intolerance, Reports fatigue, Denies heat intolerance and Denies polyphagia PFSH All Active Problems (Updated 07/31/24 @ 19:40 by Phillip Hayes MD) Gallstone pancreatitis (Acute) Abnormal transaminases (Acute) Epigastric discomfort (Acute) Elevated blood pressure reading (Acute) Elevated serum creatinine (Acute) Chest pain (Acute) Pharyngitis, acute (Acute) Viral (rapid-strep NEG)(Cx normal natan) 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 Hx elevated diastolic BPs Papilledema (Acute) stable bilateral optic disc edema which appeared overall improved since December 2022 (per [facility] from 12/06/2023) Migraine headache (Chronic) Musculoskeletal chest pain (Acute) Medical History Asthma complicating in first trimester Headache Black-out (not amnesia) History of prematurity 2.5 months early per Mother Asthma Family History Mother Anxiety Asthma Depression Social History Smoking/Tobacco Use Status: Never Smoking risk assessment performed?: Yes Alcohol Intake: never Drug use: Never Substance use type: does not use Adopted: No Caregiver/Support person: No Foster care: No Household members: family Housing: apartment Number of Children: 0 number of grandchildren: 0 Communication Needs: None Education Level: high school current occupation: [employer] Pets and animals: Yes (2 cats, 1 dog) Pets and animals: cat(s) and dog(s) Sexually active: No Do you think of yourself as: bisexual Current gender identity: female What is your relationship status?: never How often do you talk on the phone with friends or family?: three or more times per week How often do you get together with friends or relatives?: twice per week Do you belong to any clubs or organized social groups?: no Panel score (0-1 are the most socially isolated patients): 1 What type of physical activity do you participate in: walking Duration: 45-60 minutes/day Frequency: daily Nisha/Congregational: None Special nisha needs: No Seatbelt use: always Helmet use: No Drive intox or ride w/intox starting gate driver: No Water heater temp set <120 deg: Yes Fire extinguisher in home: Yes Carbon monox detector in home: Yes Firearms in home: No Do you feel safe at home: Yes Do you feel safe in your relationship?: Yes Additional Social history: Lives with Mom sister and Mom's fiance. Female Reproductive History Menstrual Age of Menarche: 12 control method: none Meds Allergies and Home Medications Allergies Allergy/AdvReac Type Severity Reaction Status Date / Time bee venom protein (honey bee) Allergy Severe Other (See Verified 07/31/24 11:12 Comment) sweet potato Allergy Severe Anaphylaxsi Verified 07/31/24 11:12 s bug bites Allergy Skin Rash Uncoded 07/31/24 11:12 Home Medications ?Medication ?Instructions ?Recorded ?Confirmed ?Type albuterol sulfate 90 mcg/actuation 2 puff inhalation Q4H PRN 06/16/24 07/31/24 Rx aerosol inhaler shortness of breath or wheezing #6.7 grams losartan 25 mg tablet 25 mg PO BID #60 tabs 06/16/24 07/31/24 Rx prochlorperazine maleate 5 mg 5 mg PO TID PRN headaches #30 tabs 06/16/24 07/31/24 Rx tablet topiramate 50 mg tablet (Topamax) 50 mg PO QHS #60 tabs 06/16/24 07/31/24 Rx propranolol 10 mg tablet 10 mg PO BID #60 tabs 07/23/24 07/31/24 Rx topiramate 25 mg tablet (Topamax) 25 mg PO QHS #90 tabs 07/23/24 07/31/24 Rx pantoprazole 20 mg tablet,delayed 20 mg PO DAILY #30 tabs 07/29/24 07/31/24 Rx release Exam Const General: cooperative and comfortable Nutritional Appearance: overweight Orientation: alert, awake and oriented x3 HENMT Head: normal to inspection Eyes General: appearance normal, both eyes and all related structures Neck Neck: normal visual inspection, full ROM and no lymphadenopathy Resp Effort & Inspection: normal respiratory effort and able to speak in complete sentences Auscultation: clear to auscultation bilaterally Cardio Rate: regular rate Rhythm: regular rhythm Heart Sounds: S1 normal and S2 normal GI Inspection: normal to inspection Palpation: soft, guarding and tender Percussion: normal to percussion Auscultation: normal bowel sounds Skin General skin exam: no rashes or lesions noted Extrem Right lower extremity: no cyanosis and no edema Left lower extremity: no cyanosis and no edema Results Imaging Abdomen CT scan report/results: report reviewed and image reviewed CT scan - pelvis: report reviewed and image reviewed Additional studies: Right upper quadrant ultrasound images reviewed Labs 07/31/24 12:18 07/31/24 12:18 Labs: Laboratory Results - last 24 hr 07/31/24 12:18 Sodium 144 Potassium 3.9 Chloride 106 Carbon Dioxide 30.8 Anion Gap 7.2 BUN 12 Creatinine 1.0 Est GFR (CKD-EPI 2020) 82.20 Glucose 135 H Calcium 9.0 Total Bilirubin 2.11 H AST 726 H ALT 654 H Alkaline Phosphatase 163 H Total Protein 7.6 Albumin 3.7 Lipase > 375 H Last Vital Signs Temp 97.4 F L 07/31/24 11:08 Pulse 110 H 07/31/24 11:08 Resp 18 07/31/24 11:08 BP 134/90 07/31/24 11:08 Pulse Ox 97 07/31/24 11:08 Time Spent Time spent with Patient: >75 minutes Time was spent: preparing to see the patient(eg.review tests), obtaining and/or reviewing separately otained hiistory, ordering medications,tests, procedures, indepentently interpreting results, counseling the patient and care coordination
[2024-07-31 13:47] LABS: Abs Immature Grans 0.03 10^3/uL (0.0-0.06); Absolute Basophil Count 0.05 10^3/uL (0.0-0.2); Absolute Lymphocyte Count 1.76 10^3/uL (1.2-3.4); Absolute Monocyte Count 0.74 10^3/uL (0.1-0.8); Absolute Neutrophil Count 6.76 10^3/uL (1.2-6.7); Basophils % 0.5 %; Eosinophils % 1.1 %; HCT 45.4 % (36.0-46.0); HGB 14.9 g/dL (11.2-15.7); Immature Grans % 0.3 %; Lymphocytes % 18.6 %; MCH 29.1 pg (27.0-33.0); MCHC 32.8 % (32.0-36.0); MCV 89 fL (80-95); MPV 11.3 fL (8.0-11.0); Monocytes % 7.8 %; Neutrophils % 71.7 %; Platelet Count 329 10^3/uL (130-400); RBC 5.12 10^6/uL (3.93-5.22); RDW 11.8 % (11.7-14.6); WBC 9.44 10^3/uL (4.4-10.8)
[2024-07-31 14:23] VITALS: BP 135/97; PULSE 70; RESP 16; O2SAT 97
[2024-07-31] MEDS: Lactated Ringers 500 ML 1000 ML IV (14:23)
--- NOTE | 2024-07-31 14:41 | W.PC.ACHO ---
Registration Status: Primary Language: Preferred Language: ED Information & Data Chief Complaint Nausea/Vomit/Diar 07/31/24 11:13 Chief Complaint Nausea/Vomit/Diar 07/31/24 11:08 Other Complaint Abd Prob 07/31/24 11:08 Triage Note Pt states he was here at 07/31/24 11:08 0600 this morning for abd pain. Did not eat today. Started vomiting just prior to arrival. Abd pain around umbilicus. Medical / Surgical History (Last Reviewed 07/31/24 @ 03:07 by Andrea Perez DO) Asthma complicating in first trimester Headache Black-out (not amnesia) History of prematurity Asthma Most Recent Vital Signs Temperature 36.3 C L 07/31/24 11:08 Temperature Source Temporal Artery Scan 07/31/24 11:08 Pulse 70 07/31/24 14:23 Respiratory Rate 16 07/31/24 14:23 Respiratory Effort Normal, Non-Labored 07/31/24 11:13 Blood Pressure 135/97 H 07/31/24 14:23 Blood Pressure Position Sitting 07/31/24 11:08 Pulse Oximetry 97 07/31/24 14:23 Oxygen Delivery Method Room Air 07/31/24 14:23 Oxygen Flow Rate 0 07/31/24 14:23 Pain Level 2 07/31/24 14:23 Allergies bee venom protein (honey bee) Allergy (Severe, Verified 07/31/24 11:12) Other (See Comment) swelling sweet potato Allergy (Severe, Verified 07/31/24 11:12) Anaphylaxsis bug bites Allergy (Uncoded 07/31/24 11:12) Skin Rash IV IV Catheter Type [Right Saline Lock Antecubital] IV Catheter Gauge [Right 18 Antecubital] Diet Orders Category Date Time Status Nothing Per Oral [DIET] Nutrition 07/31/24 Dinner Active Diagnostics 07/31/24 Range/Units 12:18 WBC 9.44 (4.4-10.8) 10^3/uL RBC 5.12 (3.93-5.22) 10^6/uL Hgb 14.9 (11.2-15.7) g/dL Hct 45.4 (36.0-46.0) % MCV 89 (80-95) fL MCH 29.1 (27.0-33.0) pg MCHC 32.8 (32.0-36.0) % RDW 11.8 (11.7-14.6) % Plt Count 329 (130-400) 10^3/uL MPV 11.3 H (8.0-11.0) fL Immature Gran % 0.3 % Neutrophils % 71.7 % Lymphocytes % 18.6 % Monocytes % 7.8 % Eosinophils % 1.1 % Basophils % 0.5 % Nucleated RBC % 0.0 (0.0-0.3) % Absolute Neutrophils 6.76 H (1.2-6.7) 10^3/uL Absolute Lymphocytes 1.76 (1.2-3.4) 10^3/uL Absolute Monocytes 0.74 (0.1-0.8) 10^3/uL Absolute Eosinophils 0.10 (0.0-0.7) 10^3/uL Absolute Basophils 0.05 (0.0-0.2) 10^3/uL Sodium 144 (136-145) mmol/L Potassium 3.9 (3.5-5.1) mmol/L Chloride 106 (98-107) mmol/L Carbon Dioxide 30.8 (21.0-32.0) mmol/L Anion Gap 7.2 (3-11) mmol/L BUN 12 (7-18) mg/dL Creatinine 1.0 (0.55-1.02) mg/dL Est GFR (CKD-EPI 2020) 82.20 (mL/min/1.73m2) Glucose 135 H (74-106) mg/dL Calcium 9.0 (8.5-10.1) mg/dL Total Bilirubin 2.11 H (0.2-1.0) mg/dL AST 726 H (15-37) U/L ALT 654 H (14-59) U/L Alkaline Phosphatase 163 H (46-116) U/L Total Protein 7.6 (6.4-8.2) g/dL Albumin 3.7 (3.4-5.0) g/dL Lipase > 375 H (16-77) U/L Intake and Output - 24 Hour Total 07/31/24 11:08 thru 07/31/24 12:24 Intake Total 10 Balance 10 Weight 99.79 kg Intake: IV 10 Other: Stool Size Moderate Falls Risk Assessment History of Falls No History 07/31/24 12:23 Fall Total Score 0 07/31/24 12:23 Level of Risk Standard/Low Risk 07/31/24 12:23 v v v v v v v v v Sending and/or Receiving Nurses: Please use comment section below to note any information pertinent to the patient hand-off not included above. Information / Comments: Report received from: Sharon MARTINEZ RN at 1415, pt admitted for gallstones with surgical interventions required, pt independent, no pain at this time.
[2024-07-31 14:46] VITALS: BP 147/103; PULSE 69; RESP 18; TEMP 36.8; O2SAT 99
--- NOTE | 2024-07-31 15:51 | ED.GENADUL_ITS ---
Discharge Plan Discharge Details Chief Complaint: Nausea/Vomit/Diar Admit Date/Time: 07/31/24 13:40 Admit Provider: Phillip Hayes Attending Provider: Phillip Hayes Primary Care Provider: Em Brand ED Provider: Daisy Burrell General Date/Time Provider Initiated Documentation: 07/31/24 11:10 . HPI Narrative: This 23-year-old female presents with second visit for epigastric and chest pain. Patient was seen earlier this morning and had CT scans of her chest abdomen pelvis did not show significant acute abnormality. Patient elevated transaminases at that time. She presents with worsening symptoms including 1 episode of vomiting. She states the pain was slightly improved after vomiting. She denies prior history of similar symptoms in the past. Denies any chance of denies any blood in vomitus. Denies any diarrhea. Related Data Home Medications ?Medication ?Instructions ?Recorded ?Confirmed albuterol sulfate 90 mcg/actuation 2 puff inhalation Q4H PRN 06/16/24 07/31/24 aerosol inhaler shortness of breath or wheezing #6.7 grams losartan 25 mg tablet 25 mg PO BID #60 tabs 06/16/24 07/31/24 prochlorperazine maleate 5 mg 5 mg PO TID PRN headaches #30 tabs 06/16/24 07/31/24 tablet topiramate 50 mg tablet (Topamax) 50 mg PO QHS #60 tabs 06/16/24 07/31/24 propranolol 10 mg tablet 10 mg PO BID #60 tabs 07/23/24 07/31/24 topiramate 25 mg tablet (Topamax) 25 mg PO QHS #90 tabs 07/23/24 07/31/24 pantoprazole 20 mg tablet,delayed 20 mg PO DAILY #30 tabs 07/29/24 07/31/24 release Previous Rx's ?Medication ?Instructions ?Recorded albuterol sulfate 90 mcg/actuation 2 puff inhalation Q4H PRN 06/16/24 aerosol inhaler shortness of breath or wheezing #6.7 grams losartan 25 mg tablet 25 mg PO BID #60 tabs 06/16/24 prochlorperazine maleate 5 mg 5 mg PO TID PRN headaches #30 tabs 06/16/24 tablet topiramate 50 mg tablet (Topamax) 50 mg PO QHS #60 tabs 06/16/24 propranolol 10 mg tablet 10 mg PO BID #60 tabs 07/23/24 topiramate 25 mg tablet (Topamax) 25 mg PO QHS #90 tabs 07/23/24 pantoprazole 20 mg tablet,delayed 20 mg PO DAILY #30 tabs 07/29/24 release Allergies Allergy/AdvReac Type Severity Reaction Status Date / Time bee venom protein (honey bee) Allergy Severe Other (See Verified 07/31/24 11:12 Comment) sweet potato Allergy Severe Anaphylaxsi Verified 07/31/24 11:12 s bug bites Allergy Skin Rash Uncoded 07/31/24 11:12 General Stated Complaint: Nausea/Vomit/Diar COLTEN: 3 Exam Narrative Exam Narrative: Patient is alert and oriented, no acute distress, patient has reproducible tenderness in her right upper quadrant and left upper quadrant, no rebound or guarding, pupils equal round reactive to light and accommodation without scleral icterus or jaundice noted, cardiac rate rhythm regular, alert and oriented x 4 Course Vital Signs Vital signs: Vital Signs Temperature 36.3 C L 07/31/24 11:08 Pulse 110 H 07/31/24 11:08 Respiratory Rate 18 07/31/24 11:08 Blood Pressure 134/90 07/31/24 11:08 Pulse Oximetry 97 07/31/24 11:08 Temperature 36.8 C 07/31/24 14:46 Temperature Source Temporal Artery Scan 07/31/24 11:08 Pulse 69 07/31/24 14:46 Pulse Rhythm Regular 07/31/24 14:46 Respiratory Rate 18 07/31/24 14:46 Respiratory Effort Normal 07/31/24 14:46 Respiratory Depth Normal 07/31/24 14:46 Respiratory Pattern Normal 07/31/24 14:46 Blood Pressure 147/103 H 07/31/24 14:46 Blood Pressure Position Sitting 07/31/24 11:08 Pulse Oximetry 99 07/31/24 14:46 Oxygen Delivery Method Room Air 07/31/24 14:46 Oxygen Flow Rate 0 07/31/24 14:46 Pain Level 2 07/31/24 14:46 Lab/Test Results Lab/Test Results: Laboratory Tests Range/Units 07/31/24 12:18 WBC (4.4-10.8) 10^3/uL 9.44 RBC (3.93-5.22) 10^6/uL 5.12 Hgb (11.2-15.7) g/dL 14.9 Hct (36.0-46.0) % 45.4 MCV (80-95) fL 89 MCH (27.0-33.0) pg 29.1 MCHC (32.0-36.0) % 32.8 RDW (11.7-14.6) % 11.8 Plt Count (130-400) 10^3/uL 329 MPV (8.0-11.0) fL 11.3 H Immature Gran % % 0.3 Neutrophils % % 71.7 Lymphocytes % % 18.6 Monocytes % % 7.8 Eosinophils % % 1.1 Basophils % % 0.5 Nucleated RBC % (0.0-0.3) % 0.0 Absolute Neutrophils (1.2-6.7) 10^3/uL 6.76 H Absolute Lymphocytes (1.2-3.4) 10^3/uL 1.76 Absolute Monocytes (0.1-0.8) 10^3/uL 0.74 Absolute Eosinophils (0.0-0.7) 10^3/uL 0.10 Absolute Basophils (0.0-0.2) 10^3/uL 0.05 Sodium (136-145) mmol/L 144 Potassium (3.5-5.1) mmol/L 3.9 Chloride (98-107) mmol/L 106 Carbon Dioxide (21.0-32.0) mmol/L 30.8 Anion Gap (3-11) mmol/L 7.2 BUN (7-18) mg/dL 12 Creatinine (0.55-1.02) mg/dL 1.0 Est GFR (CKD-EPI 2020) (mL/min/1.73m2) 82.20 Glucose (74-106) mg/dL 135 H Calcium (8.5-10.1) mg/dL 9.0 Total Bilirubin (0.2-1.0) mg/dL 2.11 H AST (15-37) U/L 726 H ALT (14-59) U/L 654 H Alkaline Phosphatase (46-116) U/L 163 H Total Protein (6.4-8.2) g/dL 7.6 Albumin (3.4-5.0) g/dL 3.7 Lipase (16-77) U/L > 375 H Medical Decision Making 23-year-old female presenting alert and oriented, as elevated LFTs were noted at her visit at 3 AM, I did order repeat transaminases and lipase, these have dramatically increased including a lipase greater than 3075 I did order an ultrasound to further evaluation patient has cholelithiasis with a dilated common bile duct. At this time I think she requires admission to the hospital. I did consult with Dr. Hayes, surgery and initiated IV fluids as patient will be NPO. She had a negative test this morning at 3 so I did not repeat this at this time. Her CBC is reassuring, her bilirubin is right ear and her lipase is greater than 375 with AST and ALT in the 600s which is more than doubled. She is agreeable to admission to the hospital. 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 Hx elevated diastolic BPs Papilledema (Acute) stable bilateral optic disc edema which appeared overall improved since December 2022 (per [facility] from 12/06/2023) Migraine headache (Chronic) Musculoskeletal chest pain (Acute) Medical History Asthma complicating in first trimester Headache Black-out (not amnesia) History of prematurity 2.5 months early per Mother Asthma Family History Mother Anxiety Asthma Depression Social History Smoking/Tobacco Use Status: Never Smoking risk assessment performed?: Yes Alcohol Intake: never Drug use: Never Substance use type: does not use Adopted: No Caregiver/Support person: No Foster care: No Household members: family Housing: apartment Number of Children: 0 number of grandchildren: 0 Communication Needs: None Education Level: high school current occupation: [employer] Pets and animals: Yes (2 cats, 1 dog) Pets and animals: cat(s) and dog(s) Sexually active: No Do you think of yourself as: bisexual Current gender identity: female What is your relationship status?: never How often do you talk on the phone with friends or family?: three or more times per week How often do you get together with friends or relatives?: twice per week Do you belong to any clubs or organized social groups?: no Panel score (0-1 are the most socially isolated patients): 1 What type of physical activity do you participate in: walking Duration: 45-60 minutes/day Frequency: daily Nisha/Evangelical: None Special nisha needs: No Seatbelt use: always Helmet use: No Drive intox or ride w/intox snaker tractor driver: No Water heater temp set <120 deg: Yes Fire extinguisher in home: Yes Carbon monox detector in home: Yes Firearms in home: No Do you feel safe at home: Yes Do you feel safe in your relationship?: Yes Additional Social history: Lives with Mom sister and Mom's fiance. Female Reproductive History Menstrual Age of Menarche: 12 control method: none
[2024-07-31] MEDS: ACETAMINOPHEN 1,000 MG/100 ML BTL 400 MG IVPB ×2 (16:18→23:07)
[2024-07-31] MEDS: Enoxaparin 40 MG/0.4 ML SYR SC (16:18)
[2024-07-31 19:53] VITALS: BP 125/81; PULSE 67; RESP 17; TEMP 36.7; O2SAT 99
[2024-07-31] MEDS: Normal Saline Flush 10 ML SYR IVP (20:39)
[2024-07-31] MEDS: Topiramate 25 MG TAB 75 MG PO (20:40)
[2024-07-31] MEDS: Propranolol 10 MG TAB PO (20:40)
[2024-07-31] MEDS: Lactated Ringers 1,000 ML 50 ML IV (23:25)
[2024-08-01] MEDS: ACETAMINOPHEN 1,000 MG/100 ML BTL 400 MG IVPB ×2 (04:48→10:25)
[2024-08-01 06:41] LABS: Abs Immature Grans 0.04 10^3/uL (0.0-0.06); Absolute Basophil Count 0.05 10^3/uL (0.0-0.2); Absolute Eosinophil Count 0.29 10^3/uL (0.0-0.7); Absolute Lymphocyte Count 3.02 10^3/uL (1.2-3.4); Absolute Monocyte Count 0.54 10^3/uL (0.1-0.8); Absolute Neutrophil Count 4.18 10^3/uL (1.2-6.7); Basophils % 0.6 %; Eosinophils % 3.6 %; HCT 41.5 % (36.0-46.0); HGB 13.6 g/dL (11.2-15.7); Immature Grans % 0.5 %; Lymphocytes % 37.2 %; MCH 29.1 pg (27.0-33.0); MCHC 32.8 % (32.0-36.0); MCV 89 fL (80-95); MPV 11.3 fL (8.0-11.0); Monocytes % 6.7 %; Neutrophils % 51.4 %; Platelet Count 297 10^3/uL (130-400); RBC 4.67 10^6/uL (3.93-5.22); RDW-SD 39.1 fL; WBC 8.12 10^3/uL (4.4-10.8)
[2024-08-01 07:07] LABS: ALT 535 U/L (14-59); AST 320 U/L (15-37); Albumin 3.2 g/dL (3.4-5.0); Alkaline Phosphatase 159 U/L (46-116); BUN 9 mg/dL (7-18); Bilirubin, Direct 0.7 mg/dL (0.0-0.2); Bilirubin, Total 1.51 mg/dL (0.2-1.0); Calcium 8.7 mg/dL (8.5-10.1); Chloride 106 mmol/L (98-107); Glucose 96 mg/dL (74-106); Potassium 4.1 mmol/L (3.5-5.1); Sodium 143 mmol/L (136-145); Total Protein 6.7 g/dL (6.4-8.2)
[2024-08-01 07:10] LABS: Lipase > 375 U/L (16-77)
[2024-08-01] MEDS: Pantoprazole 20 MG TABCR PO (07:16)
[2024-08-01 07:39] VITALS: BP 127/89; PULSE 64; RESP 18; TEMP 36.3; O2SAT 100
[2024-08-01] MEDS: Losartan 25 MG TAB PO ×2 (07:57→19:48)
[2024-08-01] MEDS: Propranolol 10 MG TAB PO ×2 (07:57→19:48)
[2024-08-01] MEDS: Normal Saline Flush 10 ML SYR IVP ×2 (07:58→19:48)
--- NOTE | 2024-08-01 09:08 | PDOC.CMIN ---
Date of service: 08/01/24 Time of Service: 09:09 Care Management Initial Assmt Initial Assessment Reason for Hospitalization: gallstone pancreatitis Functional Status/Living Situation Patient Presentation: Sunni was asleep when CM went to see her. Her mother Edwige has been staying with her and was able to provide information. Sunni and her mother live in an apartment in [place]. 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 At baseline she is healthy and active and does not receive any community services. Sunni was admitted with gallstone pancreatitis. She was started on clear liquids, which she tolerated, and is now on a low fat diet. Sunni has not required and prn pain medication today or antiemetics for nausea. Her bilirubin has decreased as have her LFTs however her lipase remains >375.The plan is for her to have a cholecystectomy this admission once the pancreatitis has improved. 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) Instrumental Activities of Daily Living (ADLs): Independent Medications Medication Management: No Issues/Barriers identified Physical Functioning/Mobility Assistive Device: none Advance Directives Advance Directives: Do you have an Advance Directive: N 05/25/13 10:13 AD On File at [facility]: N 05/25/13 10:13 Date Asked 07/31/24 07/31/24 11:10 AD Date Reviewed COLST On File at [facility] No 06/17/24 11:53 COLST Date Scanned Code Status Resuscitation Status Full Code Insurance Coverage/Financial Issues Insurance: Medicaid Care Team Visit Care Team Role Provider Type Em Brand DO Primary Care Provider OSTEOPATHIC DOCTOR GABY Emanuel Emergency Provider [employer] ALL DRIVER Phillip Hayes MD Admit Provider [facility] STAFF PHYSICIAN Attending Provider Discharge Potential Discharge Needs: PCP F/U Appt and Surgical F/U Appt Anticipated Barriers to Discharge: None Identified Patient/Family Education Needs: Review discharge instructions, discuss Ask Me Three Transportation: Private vehicle Plan: Anticipate Sunni will be discharged home with no new services when medically cleared. She will followup with her surgeon and plan of care and transport with a friend/family member/. CM will follow and continue to assess for discharge needs. 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 Hx elevated diastolic BPs Papilledema (Acute) stable bilateral optic disc edema which appeared overall improved since December 2022 ([facility]) Migraine headache (Chronic) Musculoskeletal chest pain (Acute) Medical History Asthma complicating in first trimester Headache Black-out (not amnesia) History of prematurity 2.5 months early per Mother Asthma Family History Mother Anxiety Asthma Depression Social History Smoking/Tobacco Use Status: Never Smoking risk assessment performed?: Yes Alcohol Intake: never Drug use: Never Substance use type: does not use Adopted: No Caregiver/Support person: No Foster care: No Household members: family Housing: apartment Number of Children: 0 number of grandchildren: 0 Communication Needs: None Education Level: high school current occupation: [employer] Pets and animals: Yes (2 cats, 1 dog) Pets and animals: cat(s) and dog(s) Sexually active: No Do you think of yourself as: bisexual Current gender identity: female What is your relationship status?: never How often do you talk on the phone with friends or family?: three or more times per week How often do you get together with friends or relatives?: twice per week Do you belong to any clubs or organized social groups?: no Panel score (0-1 are the most socially isolated patients): 1 What type of physical activity do you participate in: walking Duration: 45-60 minutes/day Frequency: daily Nisha/Rastafari: None Special nisha needs: No Seatbelt use: always Helmet use: No Drive intox or ride w/intox stock driver: No Water heater temp set <120 deg: Yes Fire extinguisher in home: Yes Carbon monox detector in home: Yes Firearms in home: No Do you feel safe at home: Yes Do you feel safe in your relationship?: Yes Additional Social history: Lives with Mom sister and Mom's fiance. Female Reproductive History Menstrual Age of Menarche: 12 control method: none SDOH(Care Management) Screening Will the Patient Participate in the Screening?: Yes Do you worry about having a steady place to live?: no Problems where you live: no known problems In the past 12 months, have you had to go without electric, gas, oil or water in your home?: no Have you or anyone in your house had to go without enough food to eat?: no Has lack of transportation kept you from medical appointments or from doing things needed for daily living?: yes Has anyone in your support network made you feel unsafe for any reason?: no Social Determinants of Health Comments(SDOH Details): Pt states lack of transportation has kept from medical appts. Health Related Social Needs Health related social needs: transportation insecurity(Z59.82)
[2024-08-01] MEDS: Lactated Ringers 1,000 ML 50 ML IV (09:22)
[2024-08-01 09:38] VITALS: PULSE 94
--- NOTE | 2024-08-01 10:25 | PGE_ITS ---
Date of Service Date of service: 08/01/24 Time of Service: 10:25 Assessment and Plan Assessment and plan (1) Gallstone pancreatitis: Status: Acute Assessment and plan: Her cholestasis pattern is improved significantly, and her bilirubin is trending downward. Unfortunately, the serum lipase is still above our detectable limit. This information, combined with the MRCP yesterday suggest that she most likely had transient choledocholithiasis triggering the pancreatitis, and hopefully that stone has passed from the common bile duct into the GI tract. Will trial discontinuing the intravenous fluids today, and advance her to a low-fat diet. I will repeat the lipase again tomorrow. My preference is for her to be pain- free, and ideally have a normal lipase prior to cholecystectomy as postoperative complication seem to be significantly lower in that clinical scenario. Subjective Subjective Interval history since last seen: Sunni did well overnight. She was able to tolerate some sips of liquids without any nausea or vomiting. She still has a little bit of abdominal discomfort, but is better than yesterday. Pain seems to be ranging between 0 and 2, although she has not been challenged with any significant oral intake at this point. Exam GI Other: Abdomen is soft, nondistended, she has minimal midepigastric tenderness. Objective Last Vital Signs Temp 97.3 F L 08/01/24 07:39 Pulse 94 H 08/01/24 09:38 Resp 18 08/01/24 07:39 BP 127/89 08/01/24 07:39 Pulse Ox 100 08/01/24 07:39 Laboratory Results - last 24 hr 07/31/24 08/01/24 12:18 06:30 WBC 9.44 8.12 RBC 5.12 4.67 Hgb 14.9 13.6 Hct 45.4 41.5 MCV 89 89 MCH 29.1 29.1 MCHC 32.8 32.8 RDW 11.8 12.0 Plt Count 329 297 MPV 11.3 H 11.3 H Immature Gran % 0.3 0.5 Neutrophils % 71.7 51.4 Lymphocytes % 18.6 37.2 Monocytes % 7.8 6.7 Eosinophils % 1.1 3.6 Basophils % 0.5 0.6 Nucleated RBC % 0.0 0.0 Absolute Neutrophils 6.76 H 4.18 Absolute Lymphocytes 1.76 3.02 Absolute Monocytes 0.74 0.54 Absolute Eosinophils 0.10 0.29 Absolute Basophils 0.05 0.05 Sodium 144 143 Potassium 3.9 4.1 Chloride 106 106 Carbon Dioxide 30.8 30.0 Anion Gap 7.2 7.0 BUN 12 9 Creatinine 1.0 1.0 Est GFR (CKD-EPI 2020) 82.20 82.20 Glucose 135 H 96 Calcium 9.0 8.7 Total Bilirubin 2.11 H 1.51 H Conjugated Bilirubin 0.7 H AST 726 H 320 H ALT 654 H 535 H Alkaline Phosphatase 163 H 159 H Total Protein 7.6 6.7 Albumin 3.7 3.2 L Lipase > 375 H > 375 H Time Spent with Patient Time Spent with Patient: 25-34 minutes Time was spent: preparing to see the patient(eg.review tests), ordering medications,tests, procedures, indepentently interpreting results, counseling the patient and care coordination
[2024-08-01 15:19] VITALS: BP 112/63; PULSE 62; RESP 15; TEMP 37.1; O2SAT 97
[2024-08-01] MEDS: Enoxaparin 40 MG/0.4 ML SYR SC (16:04)
[2024-08-01] MEDS: Acetaminophen 325 MG TAB 650 MG PO (17:38)
[2024-08-01 19:39] VITALS: BP 126/78; PULSE 76; RESP 20; TEMP 37.1; O2SAT 97
[2024-08-01] MEDS: Topiramate 25 MG TAB 75 MG PO (19:47)
[2024-08-01 22:53] VITALS: BP 122/79
[2024-08-02 06:44] LABS: ALT 388 U/L (14-59); AST 138 U/L (15-37); Albumin 3.2 g/dL (3.4-5.0); Alkaline Phosphatase 158 U/L (46-116); Bilirubin, Direct 0.3 mg/dL (0.0-0.2); Bilirubin, Total 0.58 mg/dL (0.2-1.0); Lipase 289 U/L (16-77); Total Protein 6.8 g/dL (6.4-8.2)
[2024-08-02] MEDS: Normal Saline Flush 10 ML SYR IVP ×2 (08:06→19:49)
[2024-08-02] MEDS: Losartan 25 MG TAB PO ×2 (08:06→19:48)
[2024-08-02] MEDS: Propranolol 10 MG TAB PO ×2 (08:06→19:48)
[2024-08-02 08:16] VITALS: BP 118/70; PULSE 59; RESP 18; TEMP 37; O2SAT 96
--- NOTE | 2024-08-02 10:06 | W.PM.PROGNOT ---
Date of Service Date of service: 08/02/24 Time of Service: 10:06 Assessment and Plan Assessment and plan (1) Gallstone pancreatitis: Status: Acute Assessment and plan: By all measures, Sunni seems to be recovering quite nicely from her episode of gallstone pancreatitis. Her lipase is finally started to come down, but is still quite high relative to the normal limit. Will plan to repeat it again tomorrow, but assuming remains stable, or hopefully continuing to improve, then we will plan for laparoscopic cholecystectomy and discharge home tomorrow Subjective Subjective Interval history since last seen: Sunni looks great today. She was able to tolerate a low-fat diet without any symptoms. She has been afebrile. Exam GI Other: Abdomen is soft and nondistended. She seems less tender today. Objective Last Vital Signs Temp 98.6 F 08/02/24 08:16 Pulse 59 L 08/02/24 08:16 Resp 18 08/02/24 08:16 BP 118/70 08/02/24 08:16 Pulse Ox 96 08/02/24 08:16 Laboratory Results - last 24 hr 08/02/24 06:10 Total Bilirubin 0.58 Conjugated Bilirubin 0.3 H AST 138 H ALT 388 H Alkaline Phosphatase 158 H Total Protein 6.8 Albumin 3.2 L Lipase 289 H Time Spent with Patient Time Spent with Patient: 25-34 minutes Time was spent: preparing to see the patient(eg.review tests), ordering medications,tests, procedures, indepentently interpreting results, counseling the patient and care coordination
[2024-08-02] MEDS: Acetaminophen 325 MG TAB 650 MG PO (14:53)
[2024-08-02 15:13] VITALS: BP 128/25; PULSE 77; RESP 17; TEMP 36.9; O2SAT 98
[2024-08-02] MEDS: Enoxaparin 40 MG/0.4 ML SYR SC (16:02)
[2024-08-02 18:59] VITALS: BP 114/85; PULSE 75; RESP 17; TEMP 37; O2SAT 97
[2024-08-02] MEDS: Topiramate 25 MG TAB 75 MG PO (19:48)
[2024-08-03] VITALS (27 sets, daily range): BP systolic 99–128; BP diastolic 51–89; PULSE 60–83; RESP 14–26; TEMP 36.2–36.9; O2SAT 92–99; BMI 38.9
[2024-08-03 06:46] LABS: Lipase 173 U/L (16-77)
[2024-08-03] MEDS: Losartan 25 MG TAB PO ×2 (07:34→19:54)
[2024-08-03] MEDS: Normal Saline Flush 10 ML SYR IVP ×2 (07:34→19:56)
[2024-08-03] MEDS: Propranolol 10 MG TAB PO ×2 (07:34→19:54)
--- NOTE | 2024-08-03 08:54 | ANES.PREOP_ITS ---
General Info Date of Service Date Performed: 08/03/24 Height: 5 ft 3 in Weight: 99.79 kg Body Mass Index (BMI): 38.9 Surgical Procedure: Operation Date: 08/03/24 12:10 Proposed Procedure Side Surgeon p Cholecystectomy Laparoscopic Phillip Hayes MD Meds Allergies and Home Medications Allergies Allergy/AdvReac Type Severity Reaction Status Date / Time bee venom protein (honey bee) Allergy Severe Other (See Verified 07/31/24 11:12 Comment) sweet potato Allergy Severe Anaphylaxsi Verified 07/31/24 11:12 s bug bites Allergy Skin Rash Uncoded 07/31/24 11:12 Home Medication ?Medication ?Instructions ?Recorded albuterol sulfate 90 mcg/actuation 2 puff inhalation Q4H PRN 06/16/24 aerosol inhaler shortness of breath or wheezing #6.7 grams losartan 25 mg tablet 25 mg PO BID #60 tabs 06/16/24 prochlorperazine maleate 5 mg 5 mg PO TID PRN headaches #30 tabs 06/16/24 tablet topiramate 50 mg tablet (Topamax) 50 mg PO QHS #60 tabs 06/16/24 propranolol 10 mg tablet 10 mg PO BID #60 tabs 07/23/24 topiramate 25 mg tablet (Topamax) 25 mg PO QHS #90 tabs 07/23/24 pantoprazole 20 mg tablet,delayed 20 mg PO DAILY #30 tabs 07/29/24 release Current Visit Medications: Current Medications Generic Name Dose Route Start Last Admin Trade Name Freq PRN Reason Stop Dose Admin Acetaminophen 650 mg 08/01/24 12:22 08/02/24 14:53 Acetaminophen 325 Mg Tab PO 650 mg Q6H PRN PRN Administration Albuterol Sulfate 2 puff 07/31/24 14:51 Albuterol Hfa 8 Gm 60 Puff Inh IH Q4H PRN PRN shortness of breath or wheezing Device 1 each 07/31/24 14:37 Inhaler, Assist Device MC DIRECTED VINCENZO Enoxaparin Sodium 40 mg 07/31/24 16:00 08/02/24 16:02 Enoxaparin 40 Mg/0.4 Ml Syr SC 40 mg Q24H VINCENZO Administration Hydromorphone HCl 1 mg 07/31/24 14:37 Hydromorphone 2 Mg/Ml Syr IVP Q6H PRN PRN IV Miscellaneous Supplies 1 each 07/31/24 14:37 Iv Access IV DIRECTED VINCENZO Indocyanine Green 5 mg 08/03/24 08:45 Indocyanine Green 25 Mg Vial IVP DIRECTED VINCENZO Losartan Potassium 25 mg 07/31/24 20:00 08/03/24 07:34 Losartan 25 Mg Tab PO 25 mg BID VINCENZO Administration Ondansetron HCl 4 mg 07/31/24 14:37 Ondansetron 4 Mg/2 Ml Vial IVP Q4H PRN PRN Prochlorperazine Maleate 5 mg 07/31/24 14:54 Prochlorperazine 5 Mg Tab PO TID PRN PRN headaches Propranolol HCl 10 mg 07/31/24 20:00 08/03/24 07:34 Propranolol 10 Mg Tab PO 10 mg BID VINCENZO Administration Sodium Chloride 0 ml 07/31/24 14:37 Normal Saline Flush 10 Ml Syr IVP PRN PRN Sodium Chloride 0 ml 07/31/24 20:00 08/03/24 07:34 Normal Saline Flush 10 Ml Syr IVP 10 ml BID VINCENZO Administration Sodium Chloride 0 ml 07/31/24 14:37 Normal Saline 10 Ml Vial IJ DIRECTED PRN Topiramate 75 mg 07/31/24 20:00 08/02/24 19:48 Topiramate 25 Mg Tab PO 75 mg HS VINCENZO Administration PFSH Active Problems Active Problems: Problem Status Onset Code Gallstone pancreatitis Acute K85.10 Abnormal transaminases Acute R74.8 Epigastric discomfort Acute R10.13 Elevated blood pressure reading Acute R03.0 Elevated serum creatinine Acute R79.89 Chest pain Acute R07.9 Pharyngitis, acute Acute J02.9 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, right eye Acute 12/06/23 H49.11 Pityriasis versicolor Acute B36.0 Elevated heart rate with elevated blood pressure without diagnosis of hypertension Acute R00.9, R03.0 Idiopathic intracranial hypertension Acute G93.2 Hypertension Chronic I10 Papilledema Acute H47.10 Migraine headache Chronic G43.909 Musculoskeletal chest pain Acute R07.89 Medical History Medical History Asthma complicating in first trimester Headache Black-out (not amnesia) History of prematurity 2.5 months early per Mother Asthma Tobacco Smoking/Tobacco Use Status: Never Passive smoking exposure: No Alcohol Alcohol Intake: never Substance Use Substance use: Never Substance use type: does not use Vital Signs and Lab Results Vital Signs Most Recent Vital Signs in EMR: Most Recent Vital Signs Temp Pulse Resp BP Pulse Ox 36.8 C 78 18 123/89 98 08/03/24 07:32 08/03/24 07:32 08/03/24 07:32 08/03/24 07:32 08/03/24 07:32 Lab Results 08/01/24 06:30 08/01/24 06:30 Blood Type / Crossmatch: 2 No Data to Display Complete Blood Count: 2 White Blood Count 8.12 10^3/uL (4.4-10.8) 08/01/24 06:30 Red Blood Count 4.67 10^6/uL (3.93-5.22) 08/01/24 06:30 Hemoglobin 13.6 g/dL (11.2-15.7) 08/01/24 06:30 Hematocrit 41.5 % (36.0-46.0) 08/01/24 06:30 Platelet Count 297 10^3/uL (130-400) 08/01/24 06:30 Complete Metabolic Panel: 2 Sodium 143 mmol/L (136-145) 08/01/24 06:30 Potassium 4.1 mmol/L (3.5-5.1) 08/01/24 06:30 Chloride 106 mmol/L (98-107) 08/01/24 06:30 Carbon Dioxide 30.0 mmol/L (21.0-32.0) 08/01/24 06:30 BUN 9 mg/dL (7-18) 08/01/24 06:30 Creatinine 1.0 mg/dL (0.55-1.02) 08/01/24 06:30 Est GFR (CKD-EPI 2020) 82.20 (mL/min/1.73m2) 08/01/24 06:30 Magnesium 1.8 mg/dL (1.8-2.4) 07/27/24 21:08 Calcium 8.7 mg/dL (8.5-10.1) 08/01/24 06:30 Albumin 3.2 g/dL (3.4-5.0) L 08/02/24 06:10 Glucose 96 mg/dL (74-106) 08/01/24 06:30 Liver Function Panel: 2 Alanine Aminotransferase (ALT/SGPT) 388 U/L (14-59) H 08/02/24 06:10 Aspartate Amino Transf (AST/SGOT) 138 U/L (15-37) H 08/02/24 06 :10 Coagulation Panel: 2 INR International Normalized Ratio 1.0 (0.9-1.1) 07/14/24 08:4 5 Prothrombin Time 10.4 sec (9.1-11.1) 07/14/24 08:45 Activated Partial Thromboplast Time 24.0 sec (23.6-32.8) 08:45 D-Dimer 648 ng/mlFEU (<500) H 07/31/24 03:06 Cardiac Panel: 2 Troponin I < 4 ng/L (<or=51) 07/31/24 NT-Pro-B Natriuret Pep 7 pg/mL (<300) 07/14/24 Arterial Blood Gas: 2 No Data to Display Venous Blood Gas: 2 No Data to Display Pancreas Panel: 2 Lipase 173 U/L (16-77) H 08/03/24 06:00 Thyroid Panel: 2 No Data to Display Infectious Disease: 2 Hepatitis B Surface Antigen Pending 07/31/24 03:53 Hepatitis C Antibody Pending 07/31/24 03:53 Blood Cultures: 2 No Data to Display Toxicology Panel: 2 No Data to Display Panel: 2 Serum HCG, Qualitative Negative 07/14/24 08:45 Anesthesia Assessment and Plan Anesthesia History Personal History: No History of Anesthesia Complications Family History: No Family History of Anesthesia Complications Exercise Tolerance Exercise Tolerance: Metabolic Equivalents>4 Cardiac & Pulmonary Exam Cardiac Exam: Normal S1/S2 Heart Sounds Pulmonary Exam: Clear Bilateral Breath Sounds Implantable Cardiac Device Does patient have a Pacemaker or an ICD?: No Airway Exam Known Difficult Airway: No Mallampati Class: 2 Mouth Opening: Narrow (< 3cm) Thyromental Distance: Greater than 3 cm Neck Range of Motion: Full ROM Neck Circumference: Normal Teeth Condition: Normal Dentition ASA Classification ASA Score: ASA 2 Emergency Case?: No NPO Status NPO Status: NPO Clears >2 hours, Solids >8 hours Status Status: Negative HCG Anesthesia Plan Resuscitation Status: Full Code Anesthesia Technique: General Anesthesia Airway Planned: Endotracheal Tube Monitors Used: Standard Monitors Preoperative Comments:: 23 yo female for lap yuri. admitted 07/31 with gallstone pancreatitis. Sig PMHx: HTN (losartan. states well controlled), migraine/IIH (Topamax. being followed by neuro. been stable). never smoker. Denies GERD. Appropriately NPO, currently hungry. EKG: sinus.
--- NOTE | 2024-08-03 09:21 | PDOC.CMDIS ---
Date of service: 08/03/24 Time of Service: 09:21 LACE Index Scoring Tool Questions: Length of Stay (in days): 3 Was the patient admitted via the E.D.?: Yes E.D. Visits: 4 Answers: Total Score: 10 Risk of Readmission: High Risk Care Management Discharge Plan Reason for Hospitalization: Gallstone pancreatitis Discharge Plan: Sunni returned home today with no new services. Her mother drove her home via private vehicle. She will follow up with surgical services and her discharge plan of care. She is happy to be going home. Patient/Family Education Needs: Review discharge instructions and limitations, discussion of self care needs including ask me three. SDOH Health Related Social Needs: Health related social needs transportation insecurity(Z59.82) Health related social needs details Getting RTC help Health related social needs: transportation insecurity(Z59.82)
[2024-08-03] MEDS: Indocyanine green 25 MG VIAL (12:30)
[2024-08-03] MEDS: Lactated Ringers 500 ML 30 ML IV (12:59)
[2024-08-03] MEDS: ceFAZolin 2 GM/50 ML BAG 100 GM (13:26)
[2024-08-03] MEDS: Bupivacaine 0.25% Pres-Free W/EPI 30 ML VIAL (13:26)
--- NOTE | 2024-08-03 14:36 | GB_PTH ---
PATIENT: Bridgett Mendoza LOC: U#:[id number] AGE/SX: 23/F ROOM: 214 RE07/31/[address]: Phillip Hayes MD : 2000 BED: A DIS: 08/04/2024 SPEC #: [id number] RECD: 08/04/24 13:25 STATUS: NEHEMIAS REQ #: [id number] BARBIE: 08/03/24 14:[address]: Phillip Hayes DEPT: Surgical Specimen RECD BY: Daisy Ma ENTERED: 08/04/24 13:25 SP TYPE: GB OTHR DR: Em Brand DO Tissues: 1 - GALLBLADDER Procedures: GROSS AND MICRO LEVEL 3 Comments: [id number]
--- NOTE | 2024-08-03 15:08 | W.PM.OP ---
Date of service: 08/03/24 Time of Service: 15:08 Operative Note Operative Note DATE OF PROCEDURE: 08/03/24 PRE-OP DIAGNOSIS: Gallstone pancreatitis POST-OP DIAGNOSIS: same PROCEDURE: Laparoscopic cholecystectomy SURGEON: Phillip Hayes PIPEFITTER: Isela Crook ANESTHESIA TYPE: Local By Surgeon and General LMA/ETT Refer to Anesthesia Record ESTIMATED BLOOD LOSS: 50 PATHOLOGY: other (Gallbladder) COMPLICATIONS: None Patient was transported to: PACU Patient's condition: stable Indications: Sunni is a 23-year-old woman with multiple ER visits for nonspecific abdominal pain. During her last encounter, she found to have elevated liver function test as well as serum lipase level beyond the upper detectable limit. She was admitted with gallstone pancreatitis. LFTs improved, her pain resolved. She is brought to the operating room for cholecystectomy for definitive treatment and prevention of recurrence of gallstone pancreatitis. Findings: Cholelithiasis Procedure Description: After satisfactory induction of general anesthesia, I prepped and draped the abdomen in usual fashion. Next, I began with a periumbilical incision. I dissected down to the fascia and elevated it with Katelynn clamps. I incised it sharply. Next, I passed a 12 mm operating port in the umbilical site. I secured it to the fascia with 0 Vicryl stitches. I then insufflated the peritoneal cavity. Next I inserted a 5 mm 30 degree scope and examined the underlying viscera. There was no evidence of injury created upon entry. I then placed the patient in some reverse Trendelenburg and left side down positioning. Then, with the assistance of the laparoscope, I used local anesthetic to anesthetize the midepigastric and 2 right upper quadrant port sites. Under the vision of the laparoscope, I passed 3 more 5 mm ports. I then grasped the gallbladder fundus and elevated cephalad. I began by dissecting the gallbladder infundibulum. I worked in a lateral to medial fashion. The cystic triangle was quite compacted with visceral fat as well as acute inflammation. Great care was taken to dissect close to the gallbladder infundibulum. Once I skeletonized the cystic duct and cystic artery, with a satisfactory critical view of safety, I doubly clipped and divided them. Immediately upon dividing the cystic duct, it appeared that the remaining stump had 2 very small lumens. Obviously, this was concerning for division of a common bile duct, but the indocyanine green could be seen in the trajectory of the common bile duct well away from this area. I could clearly traced this inferiorly up towards the liver. It was quite easy to see indications of the common bile duct curving posterior medial into the liver proper well away from the area in question. Regardless, to be safe, I continued simple blunt dissection into the gallbladder fossa. Again, we were right up on the backside of the cystic duct and gallbladder infundibulum, and this coursed into the gallbladder fossa without any other significant structures. I then switched over to cautery to her complete the dissection off of the gallbladder fossa. Once the gallbladder specimen was liberated from the underside of the liver, was placed in an Endo Catch bag and removed by way of the umbilical port site. This port did have to be enlarged a little bit because of large stones within the gallbladder lumen. Once the specimen was externalized, I brought it onto the back operating table. It was removed from the Endo Catch bag, and the clip on the cystic duct was removed. It was carefully examined. Similar to the distal side, it did appear that there was a lumen dividing the cystic duct. A small forcep was used to carefully examine these lumens. And it appeared that they both coursed into the gallbladder proper. There was no evidence in the specimen of any other undivided ductal structures. I changed my gloves, return to the operating table. I reintroduced the camera and reestablished insufflation. I examined the surgical field. It was hemostatic. There was no evidence of any bile leaking from any of the structures. I irrigated the site and reexamined it. Again, everything seemed totally normal with regards to traditional laparoscopic cholecystectomy. I then removed the 5 mm ports under the vision of the laparoscope. Finally, I removed the umbilical port site and closed the fascia with Vicryl stitches. Sites were irrigated, and the skin was closed with subcuticular stitches. Bandages were applied, patient was awakened from anesthesia, and transferred to the recovery unit.
[2024-08-03] MEDS: ACETAMINOPHEN 1,000 MG/100 ML BTL 400 MG IVPB (15:51)
--- NOTE | 2024-08-03 15:53 | W.ANESPOSTOP ---
Postoperative Evaluation Date, Time and Location Date Performed: 08/03/24 Time Performed: 15:53 Patient Location: PACU Vital Signs Most Recent Imported Vital Signs: Most Recent Vital Signs Temp Pulse Resp BP Pulse Ox 36.4 C L 78 22 112/69 93 08/03/24 15:39 08/03/24 15:40 08/03/24 15:41 08/03/24 15:40 08/03/24 15:41 Pain Score Most Recent Pain Score: Most Recent Pain Score Pain Level [Generalized] 0 08/03/24 07:19 Pain Level [Mid Anterior 2 07/31/24 14:46 Abdomen] Pain Level 0 08/03/24 15:39 Assessment Mental Status: Awake (Alert & Oriented to Patient Baseline) Airway and Respiratory Function: Patent airway with normal (patient baseline) respiratory exam Cardiovascular Function: Hemodynamically Stable Hydration Status: Adequately Hydrated Nausea & Vomiting: No Nausea or Vomiting Pain: Pain is tolerable per patient (sore, meds ordered. ) Peripheral Nerve Block: Patient did not receive a nerve block
[2024-08-03] MEDS: Normal Saline Flush 10 ML SYR (16:04)
--- NOTE | 2024-08-03 16:23 | PDOC.CMPRO ---
Date of service: 08/03/24 Time of Service: 16:24 Care Management Progress Note Progress Note Text Progress Note Text: Sunni was just being brought down to the OR when CM attempted to meet with her. CM spoke to her mother, Edwige, who was in the room. Edwige stated that Sunni was able to get good rest overnight, and was in considerably less pain today. She stated that Sunni is looking forward to returning home after surgery. Per report, after surgery, MD has decided to monitor Sunni overnight, and likely discharge tomorrow. Edwige stated that they will need support with transportation home. CM stated that RCT could be ordered upon discharge. CM will continue to follow. Discharge Potential Discharge Needs: Surgical F/U Appt Anticipated Barriers to Discharge: None Identified Patient/Family Education Needs: Review discharge instructions, discuss Ask Me Three Transportation: RCT RCT Transportation: Private vechicle Plan: Anticipate Sunni will be discharged home with no new services when medically cleared. She will followup with her surgeon and plan of care and transport via RCT private vehicle. CM will follow and continue to assess for discharge needs. SDOH(Care Management) Screening Will the Patient Participate in the Screening?: Yes Do you worry about having a steady place to live?: no Problems where you live: no known problems In the past 12 months, have you had to go without electric, gas, oil or water in your home?: no Have you or anyone in your house had to go without enough food to eat?: no Has lack of transportation kept you from medical appointments or from doing things needed for daily living?: yes Has anyone in your support network made you feel unsafe for any reason?: no Social Determinants of Health Comments(SDOH Details): Pt states lack of transportation has kept from medical appts. Health Related Social Needs Health related social needs: transportation insecurity(Z59.82)
[2024-08-03] MEDS: Enoxaparin 40 MG/0.4 ML SYR SC (17:00)
[2024-08-03] MEDS: Acetaminophen 325 MG TAB 650 MG PO (18:49)
[2024-08-03] MEDS: Topiramate 25 MG TAB 75 MG PO (19:55)
[2024-08-03] MEDS: Prochlorperazine 5 MG TAB PO (20:23)
[2024-08-03] MEDS: HYDROmorphone 2 MG/ML SYR 1 MG IVP (20:46)
[2024-08-04 07:16] LABS: ALT 352 U/L (14-59); AST 141 U/L (15-37); Albumin 3.5 g/dL (3.4-5.0); Alkaline Phosphatase 146 U/L (46-116); Bilirubin, Direct 0.3 mg/dL (0.0-0.2); Bilirubin, Total 0.57 mg/dL (0.2-1.0); Total Protein 7.5 g/dL (6.4-8.2)
--- NOTE | 2024-08-04 07:17 | PGE_ITS ---
Date of Service Date of service: 08/04/24 Time of Service: 07:17 Assessment and Plan Assessment and plan (1) Gallstone pancreatitis: Status: Acute Assessment and plan: Sunni seems to be doing very well after laparoscopic cholecystectomy for gallstone pancreatitis. LFTs are reassuring this morning. Will plan to discharge her home today, with outpatient office follow-up. Subjective Subjective Interval history since last seen: Sunni had a little bit of pain around the umbilical port site last night, but is much better controlled this morning. She is been tolerating a diet without any nausea or vomiting. She is up walking around and feels very good. Exam GI Other: Abdomen is soft and nondistended. She is got mild tenderness around the umbilical port site. Bandages are all clean and dry. Objective Last Vital Signs Temp 98.1 F 08/03/24 19:39 Pulse 83 08/03/24 18:17 Resp 17 08/03/24 19:39 BP 118/79 08/03/24 19:39 Pulse Ox 94 08/03/24 19:39 Laboratory Results - last 24 hr 08/04/24 06:35 Total Bilirubin 0.57 Conjugated Bilirubin 0.3 H AST 141 H ALT 352 H Alkaline Phosphatase 146 H Total Protein 7.5 Albumin 3.5 Time Spent with Patient Time Spent with Patient: 25-34 minutes Time was spent: preparing to see the patient(eg.review tests), referring, communicating with other health healthcare sales representative, indepentently interpreting results and counseling the patient
--- NOTE | 2024-08-04 07:27 | W.PM.DS.N ---
Date of service: 08/04/24 Time of Service: 07:27 DS: Diagnosis Discharge Diagnosis (1) Gallstone pancreatitis: Status: Acute Asessment and Plan: Status post laparoscopic cholecystectomy. Postoperative follow-up in the office Discharge Plan Disposition Patient Disposition: Home Condition: Improving Discharge Details Reason For Visit: Gallstone pancreatitis Admit Date/Time: 07/31/24 13:40 Admit Provider: Phillip Haeys Attending Provider: Phillip Hayes Primary Care Provider: Em Brand Hospital Course Hospital Course: Sunni is 23 years old. She comes to the hospital with acute on chronic chest and abdominal pain. Serum lipase was above the normal detectable limit, and she underwent a CT scan and ultrasound that confirmed the presence of cholelithiasis. History seems most consistent with gallstone pancreatitis. She was admitted for pain control and hydration. MRCP showed no evidence of ongoing choledocholithiasis. Lipase began to normalize, and she underwent cholecystectomy for definitive treatment. Home Meds and New Rx's Prescriptions: New tramadol 25 mg tablet 25 mg PO Q8H PRNQty: 9 0RF Rx Instructions: Take 1 tablet by mouth up to every 8 hours if needed for more severe pain. Continued propranolol 10 mg tablet 10 mg PO BID Qty: 60 6RF Rx Instructions: Continue @ 10mg dosing topiramate [Topamax] 25 mg tablet 25 mg PO QHS Qty: 90 3RF Rx Instructions: Take in addition to 50 mg tablet for a total of 75 mg at bedtime. pantoprazole 20 mg tablet,delayed release (DR/EC) 20 mg PO DAILY Qty: 30 0RF prochlorperazine maleate 5 mg tablet 5 mg PO TID PRN (Reason: headaches) Qty: 30 3RF topiramate [Topamax] 50 mg tablet 50 mg PO QHS Qty: 60 3RF albuterol sulfate 90 mcg/actuation HFA aerosol inhaler 2 puff IH Q4H PRN (Reason: shortness of breath or wheezing) Qty: 6.7 1RF losartan 25 mg tablet 25 mg PO BID Qty: 60 1RF Rx Instructions: Trial 1/2 tablet daily in AM x 2 weeks; Increase to 1/2 tab 2/day (evening) Discharge Instructions Instructions: Cholecystectomy, Laparoscopic Surgery Additional Instructions: Sunni, it was nice to meet you in the hospital, and am glad that you are making a nice recovery from your pancreatitis. In summary, it seems like the stones within your gallbladder the most likely source of the discomfort that you have been having over the past few weeks. Most recently, it appears that one of the stones left your gallbladder, and caused irritation to your pancreas resulting in a significant change in your pain. That stone seem to have passed on its own. We took your gallbladder and gallstones out in an effort to help reduce the likelihood that this will happen again. Hopefully it will help with all of your symptoms overall. During your recovery, you should be up and moving around. Should be walking a little more each day, with some basic light exercise to get your heart going in your blood flowing. He should be very careful with lifting, keeping it less than about a gallon of milk until we see you in the office. As a mention this morning, expect to have some bruising around the surgical sites in the days to follow, that is extremely common. 1. Resume all of your regular medications. 2. Alternate heating pads and ice packs over the incisions as needed for pain. I recommend 15-minute intervals. 3. Alternate [id number] Tylenol and ibuprofen every 6 hours for the next 2 days. Then use as needed. Use the prescription for tramadol if Tylenol and ibuprofen are not enough to control the pain.. 4. Leave bandage in place for 24 hours, then remove. 5. Shower with warm soapy water. Pat dry. Use a bandaids if needed to protect your clothing. 6. No soaking or tub baths until I see you in the office. 7. No heavy lifting until I see you in the office. 8. Call the office (or go directly to the emergency room after hours) if you notice any of the following: Develop chills (warm to touch), or if you have a thermometer and your temperature is above 101 Difficulty breathing or difficultly swallowing Persistent vomiting Any bleeding ? exceeding one tablespoon 9. Call your physician if the site where your intravenous was started becomes red, swollen, painful, and warm to touch. Referrals: Phillip Hayes MD [ [facility] STAFF PHYSICIAN] - (August 18 at 10:45 AM) Activity:: No heavy lifting Equipment/Supplies:: No Equipment Needed Diet:: As Tolerated DS: Summary Time Spent with Patient providing and/or coordinating discharge services: Less than 30 minutes Status at Discharge Functional status at discharge: independent ambulation Overall status at discharge: patient is progressing back to baseline Mental Status: mental status grossly normal Speech and Movement: speech and movement normal Mood: congruent mood Affect: normal affect Quality:SDOH Health Related Social Needs: Health related social needs transportation insecurity(Z59.82) Health related social needs details Getting RTC help Exam GI Other: Abdomen is soft and nondistended. Bandages are all clean and dry. Appropriate incisional tenderness. Psych Mental Status: mental status grossly normal Speech and Movement: speech and movement normal Mood: congruent mood Affect: normal affect DS: Data Vitals/I&O Vitals and I&O: Vital Signs Temperature 98.1 F 08/03/24 19:39 Temperature Source Tympanic 08/03/24 19:39 Pulse 83 08/03/24 18:17 Pulse Rhythm Regular 07/31/24 14:46 Pulse 70 08/03/24 15:55 Respiratory Rate 17 08/03/24 19:39 Respiratory Effort Normal 07/31/24 14:46 Respiratory Depth Normal 07/31/24 14:46 Respiratory Pattern Normal 07/31/24 14:46 Blood Pressure 118/79 08/03/24 19:39 Blood Pressure Mean 83 08/03/24 15:55 Blood Pressure Position Sitting 07/31/24 11:08 Pulse Oximetry 94 08/03/24 19:39 Respiratory End-tidal CO2 36 08/03/24 16:08 Oxygen Delivery Method Room Air 08/03/24 19:39 Oxygen Flow Rate 0 08/03/24 19:39 Pain Level 3 08/03/24 19:39 Comment WAS UP WALKING 08/03/24 19:39 Intake & Output 08/03/24 08/03/24 08/04/24 11:59 23:59 11:59 Intake Total 620 / 620 Output Total 50 / 50 Balance 570 / 570 Weight 220 lb Intake: IV 620 / 620 Output: Estimated Blood Loss 50 / 50 Other: Urine Odor Normal Comment voids independently Pt ind to toilet Emesis Description None Voiding Methods Toilet Toilet Data Completed and Pending Labs on day of discharge: Labs from last 24 hours 08/04/24 06:35 Total Bilirubin 0.57 Conjugated Bilirubin 0.3 H AST 141 H ALT 352 H Alkaline Phosphatase 146 H Total Protein 7.5 Albumin 3.5 PFSH All Active Problems (Updated 07/31/24 @ 19:40 by Phillip Hayes MD) Gallstone pancreatitis (Acute) Abnormal transaminases (Acute) Epigastric discomfort (Acute) Elevated blood pressure reading (Acute) Elevated serum creatinine (Acute) Chest pain (Acute) Pharyngitis, acute (Acute) Viral (rapid-strep NEG)(Cx normal natan) 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, 03/10/24 .. Hx elevated diastolic BPs Papilledema (Acute) stable bilateral optic disc edema which appeared overall improved since December 2022 (per [facility] from 12/06/2023) Migraine headache (Chronic) Musculoskeletal chest pain (Acute) Medical History (Updated 07/31/24 @ 19:40 by Phillip Hayes MD) Asthma complicating in first trimester Headache Black-out (not amnesia) History of prematurity 2.5 months early per Mother Asthma Surgical History (Updated 08/03/24 @ 15:25 by Felicita Moore) Hx laparoscopic cholecystectomy (~07/2024) Family History Mother Anxiety Asthma Depression Social History Smoking/Tobacco Use Status: Never Smoking risk assessment performed?: Yes Alcohol Intake: never Drug use: Never Substance use type: does not use Adopted: No Caregiver/Support person: No Foster care: No Household members: family Housing: apartment Number of Children: 0 number of grandchildren: 0 Communication Needs: None Education Level: high school current occupation: [employer] Pets and animals: Yes (2 cats, 1 dog) Pets and animals: cat(s) and dog(s) Sexually active: No Do you think of yourself as: bisexual Current gender identity: female What is your relationship status?: never How often do you talk on the phone with friends or family?: three or more times per week How often do you get together with friends or relatives?: twice per week Do you belong to any clubs or organized social groups?: no Panel score (0-1 are the most socially isolated patients): 1 What type of physical activity do you participate in: walking Duration: 45-60 minutes/day Frequency: daily Nisha/Latter-Day: None Special nisha needs: No Seatbelt use: always Helmet use: No Drive intox or ride w/intox sprinkling truck driver: No Water heater temp set <120 deg: Yes Fire extinguisher in home: Yes Carbon monox detector in home: Yes Firearms in home: No Do you feel safe at home: Yes Do you feel safe in your relationship?: Yes Additional Social history: Lives with Mom sister and Mom's fiance. Female Reproductive History Menstrual Age of Menarche: 12 control method: none Time Spent with Patient Time Spent with Patient: <45 minutes Time was spent: preparing to see the patient(eg.review tests), referring, communicating with other health critical care nurse practitioner, indepentently interpreting results, counseling the patient and care coordination
[2024-08-04 07:33] VITALS: BP 118/73; PULSE 70; RESP 18; TEMP 36.6; O2SAT 97
[2024-08-04] MEDS: HYDROmorphone 2 MG/ML VIAL 1 MG IVP ×2 (07:39→12:38)
[2024-08-04] MEDS: Normal Saline Flush 10 ML SYR IVP (07:40)
[2024-08-04] MEDS: Ondansetron 4 MG/2 ML VIAL IVP (08:42)
[2024-08-04] MEDS: Losartan 25 MG TAB PO (08:43)
[2024-08-04] MEDS: Propranolol 10 MG TAB PO (08:43)
[2024-08-04] MEDS: Acetaminophen 325 MG TAB 650 MG PO (10:42)
--- NOTE | 2024-08-04 11:58 | CMDISCH_ITS ---
Date of service: 08/04/24 Time of Service: 11:58 LACE Index Scoring Tool Questions: Length of Stay (in days): 4 - 6 Was the patient admitted via the E.D.?: Yes Comorbidities: Chronic Pulmonary Disease E.D. Visits: 5 Answers: Total Score: 13 Risk of Readmission: High Risk Care Management Discharge Plan Reason for Hospitalization: gallstone pancreatitis Discharge Plan: Sunni is discharged home today with new orders for pain control and wound care. She has an appointment with Dr. Hayes on 08/18 at 10:45. Sunni will be driven home this afternoon by her Aunt Julissa. Sunni will continue with her prescribed plan of care. Patient/Family Education Needs: Review of discharge instructions, activity, limitations, f/up plan and discuss Ask me 3. SDOH Health Related Social Needs: Health related social needs transportation insecurity( Z59.82) Health related social needs details Getting RTC help Health related social needs: transportation insecurity(Z59.82)
[2024-08-04] MEDS: traMADol 50 MG TAB PO (12:27)
== END 2024-08-04 13:09 | disposition home or self-care (01) ==
LOC: ER 14:41 → MS 15:17
PROVIDERS: Admitting Provider Surgery; Emergency Provider Physician Assistant; PCP Student in an Organized Health Care Education/Training Program; Visit Provider Surgery
PROC: 0FT44ZZ Resection of Gallbladder, Percutaneous Endoscopic Approach (ICD-10-PCS; CPT 47562; principal; 2024-08-03 12:00)
DX: K85.10 Biliary acute pancreatitis without necrosis or infection (principal); K80.11 Calculus of gallbladder with chronic cholecystitis with obstruction; R74.01 Elevation of levels of liver transaminase levels; G93.2 Benign intracranial hypertension; G43.909 Migraine, unspecified, not intractable, without status migrainosus; I10 Essential (primary) hypertension; R07.89 Other chest pain
CPT/HCPCS: 47562; 36415; 80048; 80053; 80076; 83690; 96361; 96365; 96366; 96372; 96375; 96376; 99285; J1650; 74181; 76705; 85025; 88304; G0378; J0131; J0690; J1100; J1171; J1805; J1885; J2250; J2371; J2405; J2704; J3010; J3475

== ENCOUNTER 2024-12-07 02:01 | Outpatient (CLI) | payer MEDICAID, SELFPAY ==
[2013-05-25 10:13] VITALS: O2SAT 97
[2024-12-07 09:33] LABS: HCT 46.8 % (36.0-46.0); HGB 15.7 g/dL (11.2-15.7); MCH 29.1 pg (27.0-33.0); MCHC 33.5 % (32.0-36.0); MCV 87 fL (80-95); MPV 11.3 fL (8.0-11.0); Platelet Count 367 10^3/uL (130-400); RDW 12.2 % (11.7-14.6); RDW-SD 38.6 fL; WBC 13.12 10^3/uL (4.4-10.8)
[2024-12-07 10:15] LABS: Calculated LDL 127 mg/dL (<100); Cholesterol 204 mg/dL (<200); HDL Cholesterol 55 mg/dL (40-60); TSH (W/Ref FT4) 2.85 uIU/mL (0.36-3.74); Triglyceride 114 mg/dL (<150)
[2024-12-07 10:20] LABS: Folate 12.9 ng/mL (8.6-20.0)
[2024-12-07 10:29] LABS: ALT 53 U/L (14-59); AST 22 U/L (15-37); Albumin 4.2 g/dL (3.4-5.0); Alkaline Phosphatase 105 U/L (46-116); Anion Gap 10.8 mmol/L (3-11); BUN 14 mg/dL (7-18); Bilirubin, Total 0.57 mg/dL (0.2-1.0); CO2 27.2 mmol/L (21.0-32.0); CREATININE 0.8 mg/dL (0.55-1.02); Calcium 9.9 mg/dL (8.5-10.1); Chloride 106 mmol/L (98-107); Estimated GFR 107.44 (mL/min/1.73m2); Glucose 120 mg/dL (74-106); Potassium 4.5 mmol/L (3.5-5.1); Sodium 144 mmol/L (136-145); Total Protein 8.2 g/dL (6.4-8.2); Vitamin B12 357 pg/mL (193-986)
[2024-12-07 11:04] LABS: Hemoglobin A1C 5.8 % (<5.7)
== END 2024-12-07 02:02 | disposition home or self-care (01) ==
LOC: LBO 02:01
PROVIDERS: Student in an Organized Health Care Education/Training Program; PCP Nurse Practitioner Family; Referring Provider Nurse Practitioner Family; Visit Provider Nurse Practitioner Family
DX: Z13.220 Encounter for screening for lipoid disorders (principal); I15.9 Secondary hypertension, unspecified; G43.909 Migraine, unspecified, not intractable, without status migrainosus; G93.2 Benign intracranial hypertension; R00.0 Tachycardia, unspecified; J45.909 Unspecified asthma, uncomplicated; R55 Syncope and collapse; E46 Unspecified protein-calorie malnutrition; K90.9 Intestinal malabsorption, unspecified; Z91.89 Other specified personal risk factors, not elsewhere classified; R73.09 Other abnormal glucose
CPT/HCPCS: 36415; 80053; 80061; 82306; 85027; 82607; 82746; 83036; 84443

== ENCOUNTER 2024-12-16 03:29 | Outpatient (CLI) | payer MEDICAID, SELFPAY ==
[2013-05-25 10:13] VITALS: O2SAT 97
--- NOTE | 2024-12-16 12:26 | TELEFU_ITS ---
Date of service: 12/16/24 Time of Service: 12:00 Nutrition Note NOTE: Sunni came in for referred nutrition visit over concerns of HTN. Sunni also mentions she has fatty liver. 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 Before discussing food we also discussed other factors contributing to HTN like inactivity. Sunni walks their dog sometimes more than a mile about 5 times per day as her activity currently. We discsussed stress and she confirms she is often stressed. We discussed importance of adequate sleep - Sunni tends to stay up very late and sleep in late into the morning. She does not eat breakfast and often just has late lunch and a dinner. Last night she had meatloaf and mashed potato and before our appt had leftover pork and butternut squash. Food budget is a barrier as well as getting out to shop - Sunni's aunt takes them on a big shopping ~1st of the month and they try to get enough for the month - frozen and canned products often chosen. Mom receives meals on wheels. They avoid food shelves as Sunni's mother reportedly hoards food and they find it moldy/spoiled. They get SNAP at 300+ dollars per month. Asked if she takes nutrition supplements and she does not currently, although she states she is supposed to take vitamin D (had low lab value) but cannot find room in the budget for it currently. Current diet assessed as high in refined starch low in fiber. We discussed 4 goals: 1- start reading food labels regularly as a good deal of the food coming into the home is packaged 2- keep sodium goal at 2,300mg or less per day. Gave tip that on pkg products if Na number is higher than calorie number than it is probably too high of a sodium choice. Also reviewed common foods high in sodium and reviewed labels. 3- keep added sugar <25 grams per day - we reviewed this on food label 4- work at increasing fiber to 30 or more grams per day by increasing whole plant foods. discussed importance of being proactive with her meals and not just eating the same thing her mother seems to demand to eat more processed items. Encouraged Sunni to take notice of her nutrition as she states she usually just doesn't care what she eats just wants to eat when she is hungry. Recommendations: -would recommend Rx for Vitamin D as she finds this not affordable and it is essential to bring her levels up -gave Sunni additional food resources in the community like [employer]. -has my contact info should she desire more follow up or additonal help getting menus planned. Time Spent in Nutritional Counseling and Treatment: 25 min
== END 2024-12-16 03:30 | disposition home or self-care (01) ==
LOC: DS 03:29
PROVIDERS: PCP Nurse Practitioner Family; Visit Provider Dietitian, Registered
DX: I10 Essential (primary) hypertension (principal)
CPT/HCPCS: 00123; 97802

== ENCOUNTER 2025-04-05 17:45 | Emergency (ER) | payer MEDICAID, SELFPAY ==
[2013-05-25 10:13] VITALS: O2SAT 97
[2025-04-05 17:46] VITALS: BP 140/99; PULSE 108; RESP 20; TEMP 36.7; O2SAT 97
--- NOTE | 2025-04-05 18:40 | DI.RAD_ITS ---
Exam(s) XR FOOT LT COMPLETE EXAM: XR FOOT LT COMPLETE CLINICAL HISTORY: left foot pain. TECHNIQUE: 2D digital imaging was performed. Three views. COMPARISON: CR XR FOOT RT COMPLETE from 06/17/2024 FINDINGS: BONES: No acute fracture is present. No bony destructive lesion is seen. JOINTS: No dislocation present. SOFT TISSUE: Normal. IMPRESSION: Unremarkable radiographs of the left foot. DATA REPOSITORY: RADIATION DOSE DELIVERED:
[2025-04-05] MEDS: Ketorolac 10 MG TAB PO (19:02)
--- NOTE | 2025-04-05 19:11 | W.ED.GENAD ---
Discharge Plan Disposition Patient Disposition: Home Condition: Stable Discharge Details Clinical Impression: Pain of left great toe, Tendonitis Primary Care Provider: Solange Akins ED Provider: [place] Home Meds and New Rx's Prescriptions: New meloxicam 7.5 mg tablet 7.5 mg PO DAILY 14 Days Qty: 14 0RF Rx Instructions: take with food, do not combine with other nsaids. No Action losartan 25 mg tablet 25 mg PO BID Qty: 60 1RF cholecalciferol (vitamin D3) 50 mcg (2,000 unit) capsule 50 mcg PO DAILY Qty: 90 3RF propranolol 10 mg tablet 10 mg PO BID Qty: 60 6RF Rx Instructions: Continue @ 10mg dosing albuterol sulfate 90 mcg/actuation HFA aerosol inhaler 2 puff IH Q4H PRN (Reason: shortness of breath or wheezing) Qty: 6.7 1RF prochlorperazine maleate 5 mg tablet 5 mg PO TID PRN (Reason: headaches) Qty: 30 3RF topiramate [Topamax] 50 mg tablet 50 mg PO QHS Qty: 90 3RF topiramate [Topamax] 25 mg tablet 25 mg PO QHS Qty: 90 3RF Rx Instructions: Take in addition to 50 mg tablet for a total of 75 mg at bedtime. Discharge Instructions Instructions: Tendinopathy (DC) Additional Instructions: There are no signs of infection, fracture or joint abnormality. Symptoms are likely due to some tendinitis. A prescription for meloxicam has been sent to the pharmacy. Please take this as prescribed. Hard soled shoe will likely improve your symptoms. Please try this. Follow-up with your primary care provider for reevaluation of any ongoing symptoms. HPI General Date/Time Provider Initiated Documentation: 04/05/25 17:59. Limitations to Documentation: no limitations. Information obtained by: patient. HPI Narrative: 24-year-old female without significant past medical history presents for evaluation of left toe pain. She reports that she woke up her left great toe was hurting. She denies any trauma. She reports that the pain is worse with walking and moving her toe. Triage fluids and withdrew the pain to the toe joint. She denies any trauma. She reports that yesterday she thinks that her foot was purple when a wave. She denies any pain in the sole of the foot Related Data Home Medications ?Medication ?Instructions ?Recorded ?Confirmed albuterol sulfate 90 mcg/actuation 2 puff inhalation Q4H PRN 06/16/24 04/05/25 aerosol inhaler shortness of breath or wheezing #6.7 grams propranolol 10 mg tablet 10 mg PO BID #60 tabs 07/23/24 04/05/25 prochlorperazine maleate 5 mg 5 mg PO TID PRN headaches #30 tabs 09/09/24 04/05/25 tablet topiramate 25 mg tablet (Topamax) 25 mg PO QHS #90 tabs 09/09/24 04/05/25 topiramate 50 mg tablet (Topamax) 50 mg PO QHS #90 tabs 09/09/24 04/05/25 losartan 25 mg tablet 25 mg PO BID #60 tabs 11/24/24 04/05/25 cholecalciferol (vitamin D3) 50 50 mcg PO DAILY #90 caps 12/16/24 04/05/25 mcg (2,000 unit) capsule meloxicam 7.5 mg tablet 7.5 mg PO DAILY 2 weeks #14 tabs 04/05/25 Previous Rx's ?Medication ?Instructions ?Recorded albuterol sulfate 90 mcg/actuation 2 puff inhalation Q4H PRN 06/16/24 aerosol inhaler shortness of breath or wheezing #6.7 grams propranolol 10 mg tablet 10 mg PO BID #60 tabs 07/23/24 prochlorperazine maleate 5 mg 5 mg PO TID PRN headaches #30 tabs 09/09/24 tablet topiramate 25 mg tablet (Topamax) 25 mg PO QHS #90 tabs 09/09/24 topiramate 50 mg tablet (Topamax) 50 mg PO QHS #90 tabs 09/09/24 losartan 25 mg tablet 25 mg PO BID #60 tabs 11/24/24 cholecalciferol (vitamin D3) 50 50 mcg PO DAILY #90 caps 12/16/24 mcg (2,000 unit) capsule meloxicam 7.5 mg tablet 7.5 mg PO DAILY 2 weeks #14 tabs 04/05/25 Allergies Allergy/AdvReac Type Severity Reaction Status Date / Time bee venom protein (honey bee) Allergy Severe Other (See Verified 04/05/25 17:51 Comment) sweet potato Allergy Severe Anaphylaxsi Verified 04/05/25 17:51 s insect venom Allergy Excesssive Verified 04/05/25 17:51 swelling General Stated Complaint: Orthopedic COLTEN: 3 Exam Narrative Exam Narrative: Review of Systems: All systems reviewed & are unremarkable except as noted in HPI and below Well-developed, no acute distress NCAT Unlabored respiratory effort Left foot without wounds or tenderness, no obvious deformity, mild tenderness of the MCP without any swelling redness or warmth. Full range of motion good cap refill, palpable Course Vital Signs Vital signs: Vital Signs Temperature 36.7 C 04/05/25 17:46 Pulse 108 H 04/05/25 17:46 Respiratory Rate 20 04/05/25 17:46 Blood Pressure 140/99 H 04/05/25 17:46 Pulse Oximetry 97 04/05/25 17:46 Temperature 36.7 C 04/05/25 17:46 Pulse 108 H 04/05/25 17:46 Respiratory Rate 20 04/05/25 17:46 Blood Pressure 140/99 H 04/05/25 17:46 Blood Pressure Position Sitting 04/05/25 17:46 Pulse Oximetry 97 04/05/25 17:46 Oxygen Delivery Method Room Air 04/05/25 17:46 Oxygen Flow Rate 0 04/05/25 17:46 Pain Level 6 04/05/25 19:02 Medical Decision Making Emergent evaluation of left foot pain isolated to the toe. Initial differential includes tendinitis, trauma, gout less likely. Patient denies any history of trauma. The foot has no discoloration or concerns for overlying infection neurovascular abnormality. No explanation for her reported discoloration at home. She lives apply ice directly from her lungs and milligrams that she had applied along yesterday and there was some capillary constriction. I do not suspect any vascular insufficiency. An x-ray was obtained and the radiograph reviewed and is normal no acute process noted. I suspect that there is some tendinopathy causing her discomfort as all conditions seem less likely. Recommend NSAIDs. First dose given in the emergency department prescription for meloxicam sent to the pharmacy with instructions to take with food. Recommend close follow-up with PCP for any ongoing issues or concerns. Return precautions advised. 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 Hx elevated diastolic BPs Papilledema (Acute) stable bilateral optic disc edema which appeared overall improved since December 2022 (per [facility] from 12/06/2023) Migraine headache (Chronic) Musculoskeletal chest pain (Acute) Medical History (Updated 04/05/25 @ 18:44 by [place] MD) Epigastric discomfort Elevated blood pressure reading Chest pain Pharyngitis, acute Viral (rapid-strep NEG)(Cx normal natan) Elevated heart rate with elevated blood pressure without diagnosis of hypertension Asthma complicating in first trimester Headache Black-out (not amnesia) History of prematurity 2.5 months early per Mother Asthma Surgical History (Updated 08/03/24 @ 15:25 by Felicita Moore) Hx laparoscopic cholecystectomy (~07/2024) Family History Mother Anxiety Asthma Depression Social History Smoking/Tobacco Use Status: Never Smoking risk assessment performed?: Yes Alcohol Intake: never Drug use: Never Substance use type: does not use Adopted: No Caregiver/Support person: No Foster care: No Household members: family Housing: apartment Number of Children: 0 number of grandchildren: 0 Communication Needs: None Education Level: high school current occupation: [employer] Pets and animals: Yes (2 cats, 1 dog) Pets and animals: cat(s) and dog(s) Sexually active: No Do you think of yourself as: bisexual Current gender identity: female What is your relationship status?: never How often do you talk on the phone with friends or family?: three or more times per week How often do you get together with friends or relatives?: twice per week Do you belong to any clubs or organized social groups?: no Panel score (0-1 are the most socially isolated patients): 1 What type of physical activity do you participate in: walking Duration: 45-60 minutes/day Frequency: daily Nisha/Moravian: None Special nisha needs: No Seatbelt use: always Helmet use: No Drive intox or ride w/intox equipment driver: No Water heater temp set <120 deg: Yes Fire extinguisher in home: Yes Carbon monox detector in home: Yes Firearms in home: No Do you feel safe at home: Yes Do you feel safe in your relationship?: Yes Additional Social history: Lives with Mom sister and Mom's fiance. Female Reproductive History Menstrual Age of Menarche: 12 control method: none
== END 2025-04-05 19:08 | disposition home or self-care (01) ==
LOC: ER 19:07
PROVIDERS: Emergency Provider Emergency Medicine; PCP Nurse Practitioner Family
DX: M79.675 Pain in left toe(s) (principal); M77.8 Other enthesopathies, not elsewhere classified; I10 Essential (primary) hypertension
CPT/HCPCS: 99283; 73630

== ENCOUNTER 2025-08-18 02:02 | Outpatient (CLI) | payer MEDICAID, SELFPAY ==
[2013-05-25 10:13] VITALS: O2SAT 97
[2025-08-18 08:15] LABS: Abs Immature Grans 0.03 10^3/uL (0.0-0.06); HCT 44.5 % (36.0-46.0); HGB 15.0 g/dL (11.2-15.7); Immature Grans % 0.3 %; MCH 29.5 pg (27.0-33.0); MCHC 33.7 % (32.0-36.0); MCV 88 fL (80-95); MPV 11.4 fL (8.0-11.0); Platelet Count 340 10^3/uL (130-400); RBC 5.08 10^6/uL (3.93-5.22); RDW 12.1 % (11.7-14.6); RDW-SD 39.0 fL; WBC 9.12 10^3/uL (4.4-10.8)
[2025-08-18 08:59] LABS: Hemoglobin A1C 5.6 % (<5.7)
[2025-08-18 09:07] LABS: Iron 145 ug/dL (50-170); Total Iron Binding Capacity 241 ug/dL (250-450)
[2025-08-18 09:08] LABS: HCG Qual (Serum) Negative
[2025-08-18 22:18] LABS: FSH 3.9 mIU/mL (See Note)
[2025-08-24 16:01] LABS: Estradiol, Mass Spectrometry 46 pg/mL
== END 2025-08-18 02:03 | disposition home or self-care (01) ==
LOC: LBO 02:02
PROVIDERS: PCP Nurse Practitioner Family; Visit Provider Obstetrics & Gynecology
DX: N91.2 Amenorrhea, unspecified (principal); N93.9 Abnormal uterine and vaginal bleeding, unspecified
CPT/HCPCS: 36415; 84403; 82670; 82679; 82728; 83001; 83036; 83540; 83550; 84146; 84443; 84703; 85025

== ENCOUNTER 2025-09-28 07:40 | Outpatient (CLI) | payer MEDICAID, SELFPAY ==
[2013-05-25 10:13] VITALS: O2SAT 97
[2025-09-28 07:50] LABS: HCT 42.7 % (36.0-46.0); HGB 14.0 g/dL (11.2-15.7); MCH 29.0 pg (27.0-33.0); MCHC 32.8 % (32.0-36.0); MCV 88 fL (80-95); MPV 10.9 fL (8.0-11.0); Platelet Count 310 10^3/uL (130-400); RBC 4.83 10^6/uL (3.93-5.22); RDW 12.3 % (11.7-14.6); RDW-SD 39.4 fL; WBC 9.18 10^3/uL (4.4-10.8)
[2025-09-28 08:19] LABS: Ferritin 111 ng/mL (7-271); TSH (W/Ref FT4) 2.96 uIU/mL (0.55-4.78)
[2025-09-28 08:21] LABS: Magnesium 1.9 mg/dL (1.6-2.6)
[2025-09-28 08:23] LABS: ALT 45 U/L (10-49); AST 26 U/L (<34); Albumin 4.5 g/dL (3.2-5.0); Alkaline Phosphatase 90 U/L (46-116); Anion Gap 8.7 mmol/L (3-11); BUN 13 mg/dL (9-23); Bilirubin, Total 0.30 mg/dL (0.2-1.2); CO2 28.3 mmol/L (20.0-31.0); Calcium 8.9 mg/dL (8.3-10.6); Chloride 109 mmol/L (98-107); Glucose 107 mg/dL (74-106); Potassium 4.3 mmol/L (3.5-5.1); Sodium 146 mmol/L (136-145); Total Protein 7.1 g/dL (5.7-8.2)
[2025-09-28 08:28] LABS: Hemoglobin A1C 5.5 % (<5.7)
== END 2025-09-28 07:41 | disposition home or self-care (01) ==
LOC: LBO 07:40
PROVIDERS: PCP Nurse Practitioner Family; Visit Provider Nurse Practitioner Family
DX: R42 Dizziness and giddiness (principal); N93.9 Abnormal uterine and vaginal bleeding, unspecified
CPT/HCPCS: 36415; 80053; 82533; 85027; 82728; 83036; 83735; 84443

== ENCOUNTER 2025-09-30 01:42 | Outpatient (CLI) | payer MEDICAID, SELFPAY ==
[2013-05-25 10:13] VITALS: O2SAT 97
[2025-09-30 10:20] LABS: D-Dimer 368 ng/mlFEU (<500)
== END 2025-09-30 01:43 | disposition home or self-care (01) ==
LOC: LBO 01:43
PROVIDERS: PCP Nurse Practitioner Family; Visit Provider Obstetrics & Gynecology
DX: R79.89 Other specified abnormal findings of blood chemistry (principal)
CPT/HCPCS: 36415; 85379